=== PATIENT | female | born 1970 | race Caucasian/White ===

== ENCOUNTER 2023-05-08 09:55 | Outpatient (CLI) | payer BC, SELFPAY ==
--- NOTE | 2023-05-08 11:30 | NEURO_ITS ---
Impression: # Complains of numbness of both hands. # Bilateral Carpal Tunnel Syndrome, right more than left. # Normal Needle/EMG except right APB. # Clinical correlation recommended. Nerve Conduction Studies Anti Sensory Summary Table Stim Site NR Peak (ms) P-T Amp (?V) Site1 Site2 Delta-P (ms) Dist (cm) [place] (m/s) Left Median Anti Sensory (2-3nd Digit) Wrist 3.9 22.0 Wrist 2-3nd Digit 3.9 14.0 36 Wrist 3.9 28.2 Wrist 2-3nd Digit 3.9 14.0 36 Right Median Anti Sensory (2-3nd Digit) NO RESPONSE Wrist 4.7 11.6 Wrist 2-3nd Digit 4.7 14.0 30 Wrist NR Wrist 2-3nd Digit 4.7 14.0 30 Left Radial Anti Sensory (Base 1st Digit) Wrist 2.1 26.8 Wrist Base 1st Digit 2.1 0.0 Right Radial Anti Sensory (Base 1st Digit) Wrist 1.8 29.2 Wrist Base 1st Digit 1.8 0.0 Left Ulnar Anti Sensory (5th Digit) Wrist 2.1 35.0 Wrist 5th Digit 2.1 14.0 67 Right Ulnar Anti Sensory (5th Digit) Wrist 2.5 29.0 Wrist 5th Digit 2.5 14.0 56 Motor Summary Table Stim Site NR Onset (ms) O-P Amp (mV) Site1 Site2 Delta-0 (ms) Dist (cm) Quincy (m/s) Left Median Motor (Abd Poll Brev) Wrist 4.2 2.9 Elbow Wrist 5.0 30.0 60 Elbow 9.2 2.0 Right Median Motor (Abd Poll Brev) Wrist 6.5 2.7 Elbow Wrist 4.7 26.0 55 Elbow 11.2 2.6 Left Ulnar Motor (Abd Dig Minimi) Wrist 2.7 5.5 A Elbow Wrist 5.2 30.0 58 A Elbow 7.9 5.2 Right Ulnar Motor (Abd Dig Minimi) Wrist 2.4 7.4 A Elbow Wrist 5.3 29.0 55 A Elbow 7.7 5.7 F Wave Studies NR F-Lat (ms) L-R F-Lat (ms) Left Median (Mrkrs) (Abd Poll Brev) 27.70 2.12 Right Median (Mrkrs) (Abd Poll Brev) 29.82 2.12 Left Ulnar (Mrkrs) (Abd Dig Min) 28.38 0.75 Right Ulnar (Mrkrs) (Abd Dig Min) 27.63 0.75 EMG Side Muscle Nerve Root Ins Act Fibs Amp Dur Recrt Comment Right 1stDorInt Ulnar C8-T1 Nml Nml Nml Nml Nml Right Ext Indicis Radial (Post Int) C7-8 Nml Nml Nml Nml Nml Right Ext Digitorum Radial (Post Int) C7-8 Nml Nml Nml Nml Nml Right BrachioRad Radial C5-6 Nml Nml Nml Nml Nml Right PronatorTeres Median C6-7 Nml Nml Nml Nml Nml Right Abd Poll Brev Median C8-T1 Nml Nml Nml Nml Reduced Left 1stDorInt Ulnar C8-T1 Nml Nml Nml Nml Nml Left Ext Indicis Radial (Post Int) C7-8 Nml Nml Nml Nml Nml Left Ext Digitorum Radial (Post Int) C7-8 Nml Nml Nml Nml Nml Left BrachioRad Radial C5-6 Nml Nml Nml Nml Nml Left PronatorTeres Median C6-7 Nml Nml Nml Nml Nml Left Abd Poll Brev Median C8-T1 Nml Nml Nml Nml Nml MTDD
== END 2023-05-08 09:56 | disposition home or self-care (01) ==
LOC: ANHNEURO 09:55
PROVIDERS: PCP Physician Assistant; Visit Provider Physician Assistant
DX: G56.03 Carpal tunnel syndrome, bilateral upper limbs (principal)
CPT/HCPCS: 95886; 95911

== ENCOUNTER 2024-11-25 09:21 | Outpatient (CLI) | payer BC, SELFPAY ==
--- NOTE | 2024-11-25 | ECHO_ITS ---
Patient Info Name: Laura Desir Age: 53 years : 1970 Gender: Female Ht: 65 in Wt: 227 lbs BSA: 2.22 m2 HR: 87 bpm BP: 191 / 97 mmHg Heart Rhythm: Sinus Rhythm Technical Quality: Good Exam Date: 11/25/2024 9:51 AM Exam Location: Echo Lab Patient Status: Outpatient Admit Date: 11/25/2024 Staff Ordering Physician: CheriRegina PA-C Wood Sawyer: Beata Hogan RDCS Attending Provider: CheriRegina PA-C Exam Type: CA echo doppler color flow Study Info Indications R94.31 - Abnormal electrocardiogram ECG EKG Complete two-dimensional, color flow and Doppler transthoracic echocardiogram is performed. Summary 1. Complete two-dimensional, color flow and Doppler transthoracic echocardiogram is performed. 2. Left ventricular chamber dimension is normal. 3. Left ventricular systolic function is normal, estimated at 65-70%. 4. Right ventricular systolic function is normal. 5. No significant valvular disease. Left Ventricle Left ventricular chamber dimension is normal. Left ventricular systolic function is normal, estimated at 65-70%. There is no increased left ventricular wall thickness. The left ventricular diastolic function is normal. Right Ventricle Right ventricular chamber dimension is normal. Right ventricular systolic function is normal. Left Atria Left atrial chamber dimension is normal. Right Atria Right atrial chamber dimension is normal. Atrial Septum Intact interatrial septum visualized by color flow imaging. Aortic Valve The aortic valve is trileaflet. There is mild aortic valve sclerosis. There is no aortic valve stenosis. There is no aortic valve regurgitation. Pulmonic Valve The pulmonic valve is not well visualized. Mitral Valve There is trace mitral valve regurgitation. Tricuspid Valve There is trace tricuspid valve regurgitation. Pericardium/Pleural There is no pericardial effusion. Inferior Vena Cava Normal inferior vena cava with >50% collapse upon inspiration consistent with normal right atrial pressure, 3 mmHg. Aorta The aortic root size at the sinus of Valsalva is normal. Left Ventricular Outflow Tract Name Value Normal LVOT 2D LVOT Diameter 1.9 cm LVOT Doppler LVOT Peak Velocity 95 cm/s LVOT Peak Gradient 4 mmHg LVOT Mean Gradient 2 mmHg LVOT VTI 20 cm LVOT VTI/AV VTI Ratio 0.8 LVOT Stroke Volume 55 ml LVOT CO 4.4 l/min LVOT CI 2.0 l/min/m2 Pulmonic Valve Name Value Normal RVOT Doppler RVOT Peak Gradient 4 mmHg PV Doppler PV Peak Velocity 134 cm/s PV Peak Gradient 7 mmHg Mitral Valve Name Value Normal MV Doppler MV Decel [place] 752 cm/s2 MV PHT 33 ms MV Area (PHT) 6.7 cm2 4.0-5.0 MV Diastolic Function MV E Peak Velocity 85 cm/s MV A Peak Velocity 116 cm/s MV E/A 0.7 MV Decel Time 113 ms Tricuspid Valve Name Value Normal Estimated PAP/RSVP RA Pressure 3 mmHg <=5 Aorta Name Value Normal Ascending Aorta Ao Root Diameter (MM) 2.9 cm Ao Root Diam Index (MM) 1.3 cm/m2 Aortic Valve Name Value Normal AV Doppler AV Peak Velocity 121 cm/s AV Peak Gradient 6 mmHg AV Mean Gradient 4 mmHg AV VTI 24 cm AV Area (Cont Eq VTI) 2.3 cm2 >=3.0 AV Area (Cont Eq Quin[place]) 2.2 cm2 AV V1/V2 Ratio 0.78 AV Regurgitation 2D LVOT Area 2.8 cm2 Ventricles Name Value Normal LV Dimensions 2D/MM IVS Diastolic Thickness (2D) 1.0 cm 0.6-1.0 IVS Diastole Thickness (MM) 1.1 cm 0.6-0.9 LVID Diastole (2D) 4.1 cm 3.8-5.2 LVID Diastole (MM) 4.7 cm 3.8-5.2 LVIW Diastolic Thickness (2D) 1.0 cm 0.6-0.9 LVIW Diastolic Thickness (MM) 0.9 cm 0.6-0.9 LVID Systole (2D) 2.4 cm 2.2-3.5 LVID Systole (MM) 2.4 cm 2.2-3.5 LVOT Diameter 1.9 cm LV Mass (2D Cubed) 132.74 g 67.00-162.00 LV Mass Index (2D Cubed) 60 g/m2 43-95 Relative Wall Thickness (2D) 0.47 LV Mass (MM Cubed) 165.82 g 67.00-162.00 LV Mass Index (MM Cubed) 75 g/m2 43-95 Relative Wall Thickness (MM) 0.39 LV Fractional Shortening/Ejection Fraction 2D/MM LV Fractional Shortening (2D) 41 % 27-45 LV Fractional Shortening (MM) 50 % 27-45 LV EF (MM Teicholz) 81 % 54-74 LV EF (2D Teicholz) 73 % 54-74 LV Diastolic Volume (4C MOD) 78 ml LV EF (4C MOD) 65 % LV Diastolic Volume (2C MOD) 83 ml LV EF (2C MOD) 67 % LV Diastolic Volume (BP MOD) 81 ml 46-106 LV Diastolic Volume Index (BP MOD) 37 ml/m2 29-61 LV Systolic Volume (BP MOD) 28 ml 14-42 LV Systolic Volume Index (BP MOD) 12 ml/m2 8-24 LV EF (BP MOD) 66 % 54-74 LV Diastolic Length (4C) 8.5 cm LV Systolic Length (4C) 7.2 cm LV Stroke Volume (4C MOD) 51 ml Atria Name Value Normal LA Dimensions LA Dimension (MM) 4.2 cm 2.7-3.8 LA Volume (4C A-L) 37 ml LA Volume (BP A-L) 41 ml RA Dimensions RA Area (4C) 13.7 cm2 <=18.0 Report Signatures
--- NOTE | 2024-11-25 | EST_ITS ---
Patient Info Name: Laura Desir Age: 53 years : 1970 Gender: Female Ht: 65 in Wt: 227 lbs BSA: 2.22 m2 HR: 81 bpm BP: 174 / 77 mmHg Exam Date: 11/25/2024 11:04 AM Exam Location: Echo Lab Patient Status: Outpatient Admit Date: 11/25/2024 Staff Ordering Physician: IvanRegina PA-C Attending Provider: IvanRegina PA-C Exercise Technologist: Yasmine Copeland RDCS Nurse: Rachel Rouse APN Exam Type: CA stress yvonne w NM Study Info A regadenoson stress test was performed. Summary 1. Occasional PVCs. 2. No abnormal ST/T wave changes diagnostic of ischemia with Lexiscan. 3. Please correlate with nuclear medicine images, reported separately. 4. Stress test supervised by Rachel Rouse NP. Stress test interpreted by Agustín French MD. Protocol: Lexiscan Stress ECG Details Stage: REST Duration (min): 1 min : 58 sec HR (bpm): 84 SBP (mmHg): 174 DBP (mmHg): 77 Stage: REST Duration (min): 7 min : 18 sec HR (bpm): 87 SBP (mmHg): 174 DBP (mmHg): 77 Stage: STAGE 1 Duration (min): 1 min : 0 sec HR (bpm): 132 SBP (mmHg): 194 DBP (mmHg): 65 Stage: RECOVERY Duration (min): 1 min : 0 sec HR (bpm): 113 SBP (mmHg): 194 DBP (mmHg): 65 Stage: RECOVERY Duration (min): 2 min : 0 sec HR (bpm): 112 SBP (mmHg): 194 DBP (mmHg): 65 Stage: RECOVERY Duration (min): 3 min : 0 sec HR (bpm): 108 SBP (mmHg): 194 DBP (mmHg): 65 Stage: RECOVERY Duration (min): 4 min : 0 sec HR (bpm): 108 SBP (mmHg): 155 DBP (mmHg): 35 Stage: RECOVERY Duration (min): 4 min : 33 sec HR (bpm): 114 SBP (mmHg): 155 DBP (mmHg): 35 Rest HR: 87 bpm Peak HR: 132 bpm Rest Sys BP: 174 mmHg Peak Sys BP: 194 mmHg Max Pred HR: 169 bpm % Max Pred HR: 78 % Target HR: 144 bpm Max RPP: 25,608 bpm*mmHg Total Time: 1 min : 0 sec Rest Cano BP: 77 mmHg Peak Cano BP: 65 mmHg Total Dose: 0.4 mg Resting ECG Sinus rhythm. Stress ECG No abnormal ST/T wave changes diagnostic of ischemia with Lexiscan. Arrhythmias Occasional PVCs. Report Signatures
--- NOTE | ~2024-11-25 | NM_ITS ---
EXAMINATION: NM yvonne stress w perfusion DATE: 11/25/2024 12:24 INDICATION: Abnormal electrocardiogram. Preop. TECHNIQUE: Rest images were obtained following intravenous administration of 10.1 mCi Tc99m tetrofosm in (Myoview). The patient was infused intravenously with Lexiscan (regadenoson). Then, 32.9 mCi Tc99m tetrofosmin (Myoview) was administered intravenously, and supine and prone stress images were obtain ed. Data was reconstructed into short axis and horizontal and vertical long axis SPECT images. Gated SPECT images were also obtained. COMPARISON: None. FINDINGS: There is no definite reversible or fixed perfusion abnormality to suggest ischemia or infar ction. There is no segmental wall motion abnormality. Left ventricular ejection fraction measures > 70%. IMPRESSION: 1. No definite ischemia or infarct. 2. Normal left ventricular ejection fraction measuring >70%. Reviewed, dictated and finalized at location A. STANT DRAFTER
--- OUTSIDE RECORDS SUMMARY | 2024-11-25 09:55 | XMS_ITS | Patient Health Summary ---
Author Organization [facility] Address [address] [place] [address] Care Team Providers Care It Security Consulting Director Name Role Phone Unavailable Primary Care Provider Unavailabl e Note from [facility],non-owned Affiliates and Associated Physician Practices is amultiple site organization consisting of ambulatory clinics and hospital sitesin [place], [place], [place] and [place]. This disclosure is being madepursuant to the Care Everywhere program and may not contain all information available regarding this patient. Last updated 18.[facility] Allergies No known active allergies Medications * Be aware that medications may not be up to date on this document. Alwaysverify current medications with the patient. * METFORMIN HCL ER, MOD, PO * Fexofenadine HCl (RHEA PO) * fluticasone propionate (FLONASE) 50 MCG/ACT nasal spray(Started 07/25/2018) [place]uddy 2 sprays into each nostril once daily Social History Tobacco Use Types Packs/Day Years Used Date Smoking Tobacco: Never Sex and Gender Information Value Date Recorded Sex Assigned at Not on file Gender Identity Not on file Sexual Orientation Not on file Last Filed Vital Signs Vital Sign Reading Time Taken Comments Blood Pressure 138/80 07/25/2018 4:37 PM CDT Pulse 93 07/25/2018 4:37 PM CDT Temperature 36.6 ??C (97.8 ??F) 07/25/2018 4:37 PM CD T Respiratory Rate - - Oxygen Saturation 98% 07/25/2018 4:37 PM CDT Inhaled Oxygen Concentration - - Weight 113.4 kg (250 lb) 07/25/2018 4:37 PM CDT Height 165.1 cm (5' 5 ) 07/25/2018 4:37 PM CDT Body Mass Index 41.6 07/25/2018 4:37 PM CDT Procedures * CHOLESTECH - POINT OF CARE (AMB)(Performed 10/03/2016) Performed for Screening for lipoid disorders Results * (ABNORMAL) BIOMETRICS SCREENING--CHOLESTECH (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
--- OUTSIDE RECORDS SUMMARY | 2024-11-25 09:55 | XMS_ITS | Clinical Summary ---
Author Organization [facility] Administrative Offices Address [address] [place] [phone] Care Team Providers Care Superintendent [employer]crete Mixing [employer] Name Role Phone Tatyana Orozco MD Primary Care Provide r Allergies Active Allergy Reactions Criticality Noted Date Comments Naproxen Itching High 11/22/2023 Medications busPIRone (BUSPAR) 10 mg tablet 08/28/20 23 Active fluticasone propionate (FLONASE) 50 mcg/spray Grady, Suspension nasal inhaler 11/13/19 24 Active metroNIDAZOLE (METROGEL) 0.75 % Gel 10/09/20 23 Active sertraline (ZOLOFT) 100 mg tablet 08/28/20 23 Active traZODone (DESYREL) 50 mg tablet 08/28/20 23 Active ketoconazole (NIZORAL) 2 % CreamIndications:T inea corporis Apply to affected area daily. 60 Gram 1 11/22/19 24 Active fluconazole (DIFLUCAN) 150 mg tabletIndications: Acute cystitis without hematuria Take 1 Tablet (150 mg) by mouth daily. 1 Tablet 01/11/20 24 Active nitrofurantoin (MACROBID) 100 mg capsule Active semaglutide (Ozempic) 0.25 mg or 0.5 mg (2 mg/3 mL) Pen InjectorIndication s:Type 2 diabetes mellitus with hyperglycemia, without long-term current use of insulin (CMS/FORMERLY [facility]),Class 2 severe obesity due to excess calories with serious comorbidity and body mass index (BMI) of 39.0 to 39.9 in adult (CMS/HCC) Inject 0.5 mg by subcutaneous injection every 7 days. 9 mL 3 03/25/20 24 Active levothyroxine 75 mcg tabletIndications: Acquired hypothyroidism Take 1 tab po qam. 90 Tablet 1 04/15/20 24 Active metFORMIN (GLUCOPHAGE XR) 500 mg Extended Release 24 hour tablet TAKE TWICE DAILY 180 Tablet 1 07/22/20 24 Active cetirizine (ZyrTEC) 10 mg tablet TAKE ONCE DAILY 90 Tablet 3 10/13/20 24 Active hydroCHLOROthiazid e 25 mg tablet TAKE ONCE DAILY 90 Tablet 1 10/20/20 24 Active amLODIPine (NORVASC) 5 mg tablet TAKE ONCE DAILY 90 Tablet 3 10/31/19 25 Active amLODIPine (NORVASC) 5 mg tablet TAKE ONCE DAILY 90 Tablet 1 04/15/20 24 025 Discontin ued(Reord er) Active Problems Problem Noted Date Diagnosed Date Essential hypertension 11/21/2023 Type 2 diabetes mellitus wit h hyperglycemia, without long-term current use of insulin 11/21/2023 Environmental and seasonal allergies 11/21/2023 Acquired hypothyroidism 11/21/2023 Jose D's thyroiditis 09/10/2023 Bilateral carpal tunnel syndrome 05/10/2023 Elevated liver enzymes 09/10/2022 Anxiety 09/25/2021 Depressive disorder 09/25/2021 Encounters Date Type Department Care Team Description 11/04/2024 External Device Data [facility] ABSTRACTION Provider, Abstract 10/31/2024 Orders Only [address] [phone] Tatyana Orozco MD 10/21/2024 External Device Data [facility] ABSTRACTION Provider, Abstract 10/20/[address] [facility] - [address] [place] [phone] Tatyana Orozco MD 10/13/2024 Refill [facility] - [address] [place] [phone] Tatyana Orozco MD 08/27/2024 External Device Data [facility] ABSTRACTION Provider, Abstract from Last 3 Months Immunizations Immunization Administration Dates Next Due (ADACEL/BOOSTRIX)(10 YR UP) TDAP VACCINE, 0.5ML, IM 10/29/2008 Family History Medical History Relation Name Comments Diabetes Father Ruel End Stage Renal Disease Father Ruel Heart Attack Father Ruel Hypertension Father Ruel Ovarian Cancer Maternal Grandmother Floirina Hypertension Mother Aylin Thyroid Disease Mother Aylin Relation Name Status Comments Father Ruel Maternal Grandmother Floy Mother Aylin Alive Social History Tobacco Use Types Packs/Day Years Used Date Smoking Tobacco: Never Passive Smoke Exposure: Never Smokeless Tobacco: Never Tobacco Cessation:Counseling Given: Not Answered Alcohol Use Standard Drinks/Week Comments Not Currently 0 (1 standard drink = 0.6 oz pur e alcohol) 1-2 times a year Comments No Sex and Gender Information Value Date Recorded Sex Assigned at Female 01/10/2024 9:53 AM CDT Legal Sex Female 5:36 AM FOREST ECOLOGIST Gender Identity Female 01/10/2024 9:53 AM CDT Sexual Orientation Straight 01/10/2024 9: 53 AM CDT Last Filed Vital Signs Vital Sign Reading Time Taken Comments Blood Pressure 123/77 03/25/2024 8:36 AM CDT Pulse 75 03/25/2024 8:36 AM CDT Temperature 36.6 ??C (97.8 ??F) 03/25/2024 8:36 AM CD T Respiratory Rate 16 02/20/2024 8:51 AM CDT Oxygen Saturation 98% 03/25/2024 8:36 AM CDT Inhaled Oxygen Concentration - - Weight 107.5 kg (237 lb) 03/25/2024 8:36 AM CDT Height 165.1 cm (5' 5 ) 03/25/2024 8:36 AM CDT Body Mass Index 39.44 03/25/2024 8:36 AM CDT Plan of Treatment Upcoming Encounters Date Type Department Care Team (Late st Contact Info) Description 03/25/2025 9:00 AM CDT Office Visit [facility] Primary [facility] - [address] [place] [phone] Tatyana Orozco MD [facility] [place] [address] Health Maintenance Due Date Last Done Comments PNEUMOCOCCAL VACCINE 0-64 YEARS (1 of 2 - PCV) 979 LDL CHOLESTEROL ANNUAL 1990 HEPATITIS B VACCINES (1 of 3 - 19+ 3-dose series) 10/31 BREAST CANCER SCREENING 2012 COLORECTAL SCREENING 2017 FIT/FOBT Q 1 year 2017 Flex Sig/CT Colonography Q 5 years 2017 DTAP/TDAP/TD VACCINES (2 - Td or Tdap) 10/29/2018 ZOSTER VACCINE (1 of 2) 2022 DIABETES HBA1C Q 6 MONTHS 05/22/2024 11/22/2023 INFLUENZA VACCINE (#1) 2024 11/22/2023 Preventative Visit- Commercial 10/29/2024 11/22/2023 DIABETES ANNUAL FOOT EXAM 11/22/2024 11/22/2023 DIABETES: A1C (Auto Order) 11/22/2024 11/22/2023 DIABETES MICROALBUMIN ANNUAL SCREEN 03/25/202503/25 DIABETES ANNUAL RETINAL EXAM 05/19/2025 05/19/2024 CERVICAL CANCER SCREENING 02/19/2027 02/20/2024 Colorectal Cancer Screening 04/21/2027 FIT-DNA Q 3 years 04/21/2027 04/21/2024 Procedures Procedure Name Priority Date/Time Associated Diagnosis Comments HM DIABETES EYE EXAM Routine 05/19/2024 1:08 PM CDT COLON CANCER SCREEN, STOOL DNA Routine 04/21/2024 3:45 PM CDT Screening for colon cancer POC MICROALB/CREAT RATIO URINE QUANT Routine 03/25/2024 8:45 AM CDT Type 2 diabetes mellitus with hyperglycemia, without long-term current use of insulin (CMS/HCC) CERV/VAG CYTO AGE BASED SCREEN PAP Routine 02/20/2024 9:42 AM CDT Cervical cancer screening POC HEMOGLOBIN A1C Routine 11/22/2023 8: 07 AM FOREST ECOLOGIST Type 2 diabetes mellitus with hyperglycemia, without long-term current use of insulin (CMS/HCC) from Last 3 Months or Most Recently Relevant to Health Maintenance Results * DIABETES EYE EXAM (05/19/2024 1:08 PM CDT) us Abstract Provider HEALTH MAINTENANCE Final Resul t [facility] - [address] [facility] CLIA# [id number] [address] * COLON CANCER SCREEN, STOOL DNA (04/21/2024 3:45 PM CDT) COLOGUARD RESULT Negative Negative [facility] Comment: NEGATIVE TEST RESULT. A negative Cologuard result indicates a low likelihood that a colorectal cancer (CRC) or advanced adenoma (adenomatous polyps with more advanced pre-malignant features) ??is present. The chance that a person with a negative Cologuard test has a colorectal cancer is less than 1 in 1500 (negative predictive value >99.9%) or has an ??advanced adenoma is less than ??5.3% (negative predictive value 94.7%). These data are based on a prospective cross-sectional study of 10,000 individuals at average risk for colorectal cancer who were screened with both Cologuard and colonoscopy. (Kan Hu et al, N Engl J Med 2014;370(14):8577-4227) The normal value (reference range) for this assay is negative. COLOGUARD RE-SCREENING RECOMMENDATION: Periodic colorectal cancer screening is an important part of preventive healthcare for asymptomatic individuals at average risk for colorectal cancer. ??Following a negative Cologuard result, the [place] Cancer Society and U.S. Multi-Society Task Force screening guidelines recommend a Cologuard re-screening interval of 3 years. References: [place] Cancer Society Guideline for Colorectal Cancer Screening: https://www.cancer.org/cancer/jxpav-lhepmu-eivouu/cvovbcxpb-fgtlgbpjg-sfbttva/ac s-rec ommendations.html.; Hugo FELIX, Keri CORNELIUS, Rashmi WELLS, Colorectal Cancer Screening: Recommendations for Physicians and Patients from the U.S. Multi-Society Task Force on Colorectal Cancer Screening , Am J Gastroenterology 2017; 112:6980-5220. TEST DESCRIPTION: Composite algorithmic analysis of stool DNA-biomarkers with hemoglobin immunoassay. ?? Quantitative values of individual biomarkers are not reportable and are not associated with individual biomarker result reference ranges. Cologuard is intended for colorectal cancer screening of adults of either sex, 45 years or older, who are at average-risk for colorectal cancer (CRC). Cologuard has been approved for use by the U.S. FDA. The performance of Cologuard was established in a cross sectional study of average-risk adults aged 50-84. Cologuard performance in patients ages 45 to 49 years was estimated by sub-group analysis of near-age groups. Colonoscopies performed for a positive result may find as the most clinically significant lesion: colorectal cancer [4.0%], advanced adenoma (including sessile serrated polyps greater than or equal to 1cm diameter) [20%] or non- advanced adenoma [31%]; or no colorectal neoplasia [45%]. These estimates are derived from a prospective cross-sectional screening study of 10,000 individuals at average risk for colorectal cancer who were screened with both Cologuard and colonoscopy. (Kan Hu et al, N Engl J Med 2014;370(14):7664-4534.) Cologuard may produce a false negative or false positive result (no colorectal cancer or precancerous polyp present at colonoscopy follow up). A negative Cologuard test result does not guarantee the absence of CRC or advanced adenoma (pre-cancer). The current Cologuard screening interval is every 3 years. ([place] Cancer Society and U.S. Multi-Society Task Force). Cologuard performance data in a 10,000 patient pivotal study using colonoscopy as the reference method can be accessed at the following location: www.[employer]World.[employer]/results. Additional description of the Cologuard test process, warnings and precautions can be found at www.[employer].com. Stool STOOL SPECIMEN / Unknown 04/21/2024 3:45 PM CDT 04/22/2024 2:51 PM CDT us Tatyana Orozco MD BODY FLUIDS AND STOOL S Final Result [employer] CLIA # [id number] [address] , [address] [place] [address] * POC MICROALB/CREAT RATIO URINE QUANT (03/25/2024 8:45 AM CDT) MICROALBUMIN, URINE POC 10.0 5.0 - 300.0 mg/L [facility] - [facility] [place] CREATININE, URINE POC 100.0 15.0 - 500.0 mg/dL [place] [address] MICROALBUMIN/CR EAT RATIO, URINE POC 30.0 1.0 - 2,000.0 mg/g [place] [address] [address] [place] Urine 03/25/2024 8:45 AM CDT us Tatyana Orozco MD POINT OF CARE TESTING Final Result [place] [address] [place] CLIA# [id number] [facility] [address] * CERV/VAG CYTO AGE BASED SCREEN PAP (02/20/2024 9:42 AM CDT) Pathologist [facility] COMMENT (PAP): [facility] Comment: This order for age-based cervical cancer and STI screening follows ACOG guidelines(PB 168, 140, DOA487). See individual assays for performing site location. CLINICAL INFORMATION [facility] Comment:None given LAST MENSTRUAL PERIOD [facility] Comment:NONE GIVEN PREV PAP: [facility] Comment:NONE GIVEN PREV BX: [facility] Comment:NONE GIVEN SOURCE [facility] Comment:Endocervix ADEQUACY: [facility] Comment: Satisfactory for evaluation. Endocervical/transformation zone component present. Age and/or menstrual status not provided PAP INTERP [facility] Comment: Cytology Results: Negative for intraepithelial lesion or malignancy. COMMENT (PAP TEST) [facility] Comment: This Pap test has been evaluated with computer assisted technology. NUTRITION TECHNICIAN: [facility] Comment: MVB, CT(ASCP) CT Screening Location: [place] [address] [place] [address] EXPLANATORY NOTE Que [employer] [facility] [place] Comment: EXPLANATORY NOTE: The Pap is a screening test for cervical cancer. It is not a diagnostic test and is subject to false negative and false positive results. It is most reliable when a satisfactory sample, regularly obtained, is submitted with relevant clinical findings and history, and when the Pap result is evaluated along with historic and current clinical information. HPV E6/E7 Not Detected Not Detected [facility] Comment: Methodology: Rn Medicare-Mediated Amplification This assay detects E6/E7 viral messenger RNA (mRNA) from 14 high-risk HPV types (16,18,31,33,35,39,45,51,52,56,58,59,66,68). Cervical sources are required for HPV testing. If a vaginal source from a patient who has had a total hysterectomy with removal of cervix was submitted, please contact the testing laboratory for alternative testing options. For additional information, please refer to http://education.YongChe/faq/ECB017o7 (This link if provided for information/ educational purposes only.) Test Performed at: [facility] [address] [place], [place] ??[address] Derrick BADILLO Genital SWAB OF ENDOCERVIX / Unknown 02/20/2024 9:42 AM CDT 02/21/2024 3:56 AM CDT June Nicholson PA-C PATHOLOGY/CYTOLOGY ORDER TARYN Final Result [facility] [phone] [facility] [address] [place] [address] * (ABNORMAL) POC HEMOGLOBIN A1C (11/22/2023 8:07 AM FOREST ECOLOGIST) HGB A1C POC 6.9(A) 4.0 - 6.0 % [facility] - [facility] [place] Blood, capillary 11/22/2023 8:07 AM FOREST ECOLOGIST June Nicholson PA-C POINT OF CARE TESTING Fi nal Result [facility] - [address] CLIA# [id number] [address] [address], from Last 3 Months or Most Recently Relevant to Health Maintenance Insurance [employer] ACCESS CHOICE Care Teams Superintendent [employer] Relationship Specialty Start Date End Date Tatyana Orozco MD [address] [place] [address] PCP - General Family Practice 11/22/23
--- OUTSIDE RECORDS SUMMARY | 2024-11-25 09:55 | XMS_ITS ---
Author Organization [facility] [employer] [facility] Address [address] [place] [address] Care Team Providers Care Missile Pad Mechanic Name Role Phone Dilia Doherty Unavailable [phone] REASON FOR VISIT Telehealth Next Visit Encounters Encounter Location Date Provider Diagnosis [facility] [address] [place] [address] 08/29/2024 Dilia Doherty Plan Of Treatment Next Appt Details Provider Name:Dilia Doherty , 12/29/2024 08:15:00 AM, [address], [address], [place], [address], Progress Notes * CAROLE SAMUELOB:[birth year] (53 yo F)Acc No.[id number]:08/29/2024 Patient:?LIZZIE, KEELEY :1970???Age:53 Y???Sex:Female [facility] [place], [address] * true * Date:? Generated for Raouli carlos/Tisha/eTransmitting on:?11/25/2024 09:55 AM MARINE MECHANIC
--- OUTSIDE RECORDS SUMMARY | 2024-11-25 09:55 | XMS_ITS ---
Author Organization [facility] [employer] [facility] Address [address] [place] [address] Care Team Providers Care Respiratory Care Instructor Name Role Phone Dilia Doherty Unavailable [phone] REASON FOR VISIT Appointment on 08/29 Encounters Encounter Location Date Provider Diagnosis [facility] [employer] [facility] [address] [place] [address] 08/24/2024 Dilia Doherty Plan Of Treatment Next Appt Details Provider Name:Dilia Doherty , 12/29/2024 08:15:00 AM, [address], [place], [address], Progress Notes * CAROLE SAMUELOB:[birth year] (53 yo F)Acc No.[id number]:08/24/2024 Patient:?LIZZIE, KEELEY :1970???Age:53 Y???Sex:Female Address:[address] [place] [address], [place], [address] * true * Date:? Generated for Printi carlos/Tisha/eTransmitting on:?11/25/2024 09:55 AM MANAGER OF PMO
--- OUTSIDE RECORDS SUMMARY | 2024-11-25 09:55 | XMS_ITS | Referral Summary ---
Author Organization [facility] Address [address] [place] [address] Care Team Providers Care Senior Core Java Developer Name Role Phone Unavailable Primary Care Provider Unavailabl e Source Comments [facility],non-owned Affiliates and Associated Physician Practices is amultiple site organization consisting of ambulatory clinics and hospital sitesin [place], [place], [place] and [place]. This disclosure is being madepursuant to the Care Everywhere program and may not contain all information available regarding this patient. Last updated 18.[facility] Allergies No known active allergies Medications * Be aware that medications may not be up to date on this document. Alwaysverify current medications with the patient. Medication Sig Dispensed Refills Start Date End Date Status METFORMIN HCL ER, MOD, PO Active Fexofenadine HCl (RHEA PO) Active fluticasone propionate (FLONASE) 50 MCG/ACT nasal spray [place] 2 sprays into each nostril once daily 1 bottles 07/25/2018 Active Social History Tobacco Use Types Packs/Day Years [...] Mass Index 41.6 07/25/2018 4:37 PM CDT Plan of Treatment Not on file
--- OUTSIDE RECORDS SUMMARY | 2024-11-25 09:56 | XMS_ITS | Data Portability ---
Author Organization [facility] SHAMIRAysha Address [address] [place] [address] Care Team Providers Care Technical Clerk Name Role Phone MARIBETH TUCKER Primary Care Provider [phone] JOANA CA Primary Care Provider Unavailab le Assessment No assessment recorded. Plan of Treatment Reminders Order Date Submit Date Provider Last Modified By Organization Details Last Modified Time Details Appointments ANY 15 2024 07:45A M KARISHMA Dill Not available Not available Not available Lab CMP, serum or plasma 2023 024 EVELYN [facility], [address], [place], [address], 11/14/2023 06:16:32 TSH, ultra-sen sitive, serum 2023 024 EVELYN [facility], [address], [place], [address], 12/26/2023 08:30:01 lipid panel, serum 2023 024 [email or web address], [address], [place], [address], 08/15/2024 13:57:20 CMP, serum or plasma 2023 024 [email or web address], [address], [place], [address], 08/15/2024 13:57:20 TSH + free T4, serum 2023 024 EVELYN [facility], [address], [place], [address], 10/29/2024 07:07:18 HbA1c (hemoglob in A1c), blood 2023 024 EVELYN [facility], [address], [place], [address], 10/29/2024 07:07:20 CMP, serum or plasma 2023 024 EVELYN [facility], [address], [place], [address], 10/29/2024 07:07:19 CBC w/ auto diff 2023 024 [email or web address] [facility], [address], [place], [address], 11/11/2024 10:02:10 Referral None recorded. Procedures None recorded. Surgeries None recorded. Imaging electroca rdiogram 2024 025 [email or web address] In-Office Order, Internal Use Only DO Not Attach Compendium DO Not Attach Compendium, Do Not Delete/merge, [id number] 11/03/2024 15:04:23 Medication Orders Flonase Allergy Relief 50 mcg/actua tion nasal spray,jacquie pension 2023 024 [facility] #[id number], [address], [place], [address], 11/13/2023 11:44:15 fluticaso ne propionat e 50 mcg/actua tion nasal spray,jacquie pension 2023 024 [facility], [address] [place] [address], [address], 12/25/2023 10:42:38 cetirizin e 10 mg tablet 2023 024 [email or web address], [address] [place] [address], [address], 07/25/2024 11:30:19 metformin ER 500 mg tablet,ex tended release 24 hr 2023 [facility]N [facility], [address] [place] [address], [address], 12/25/2023 10:42:39 Trulicity 1.5 mg/0.5 mL subcutane ous pen injector 2023 [facility], [address] [place] [address], [address], 07/25/2024 11:29:10 metronida zole 0.75 % topical gel 2023 [facility], [address] [place] [address], [address], 07/25/2024 11:38:17 amlodipin e 5 mg tablet 2023 [email or web address] [facility], [address] [place] [address], [address], 07/25/2024 11:27:41 hydrochlo rothiazid e 25 mg tablet 2023 [facility], [address] [place] [address], [address], 12/25/2023 10:42:39 Synthroid 75 mcg tablet 2023 [facility], [address] [place] [address], [address], 08/21/2024 09:01:24 Ozempic 1 mg/dose (4 mg/3 mL) subcutane ous pen injector 2023 [facility] #[id number], [address] [facility], [place], [address], 07/25/2024 12:07:25 triamcino lone acetonide 0.1 % topical cream 2023 024 [facility] #[id number], [address], [place], [address], 10/09/2024 09:15:56 Patient TargetsNo targets recorded. Patient Instructions Encounter Date Encounter Id Patient Instructions Last Modified By Organization Details Last Modified Time 07/25/2024 [id number] A healthy lifestyle: care instructions Not available 07/25/2024 12:07:22 10/09/2024 [id number] A healthy lifestyle: care instructions Not available 10/09/2024 09:15:54 Reason for Referral None Reported. Results Created Date Observation Date Name Description Value Unit Range Abnormal Flag Note LastModifiedBy Organization Detail LastModifiedTime 10/25/2010/26/2023 TSH+F REE T4 TSH 3.080 uIU/m L 0.450- 4.500 Not Available [facility] ([facility]) [address] [facility], [place], [address], 10/26/2023 06:16:44 10/25/20 23 10/26/2023 TSH+F REE T4 T4,free(dire ct) 1.45 NG/dL 0.82-1 .77 Not Available [facility] ([facility]) [address] [place], [address], 10/26/2023 06:16:44 11/13/19 24 11/13/2023 COMP. METAB OLIC PANEL (14) glucose 93 mg/dL 70-99 Not Available [facility] [address] [place], [address], 11/14/2023 06:16:32 11/13/19 24 11/13/2023 COMP. METAB OLIC PANEL (14) BUN 12 mg/dL 6-24 Not Available [facility] [address] [place], [address], 11/14/2023 06:16:32 11/13/19 24 11/13/2023 COMP. METAB OLIC PANEL (14) creatinine 0.71 mg/dL 0.76-1 .27 below low normal Not Available [address], [address], 11/14/2023 06:16:32 11/13/19 24 11/13/2023 COMP. METAB OLIC PANEL (14) eGFR 104 >=60 Units for eGFR value s are mL/mi n/1.7 3 The eGFR Calcu latio n has not been valid ated for patie nts under the age of 18. If test resul ts are displ ayed for a patie nt under the age of 18, disre wallace that value . Not Available [address], [address], 11/14/2023 06:16:32 11/13/19 24 11/13/2023 COMP. METAB OLIC PANEL (14) BUN/creatini ne ratio 17 9-23 Not Available [address], [address], 11/14/2023 06:16:32 11/13/19 24 11/13/2023 COMP. METAB OLIC PANEL (14) sodium 139 mmol/ L 134-14 4 Not Available [address], [address], 11/14/2023 06:16:32 11/13/19 24 11/13/2023 COMP. METAB OLIC PANEL (14) potassium 4.0 mmol/ L 3.5-5. 2 Not Available [address], [address], 11/14/2023 06:16:32 11/13/19 24 11/13/2023 COMP. METAB OLIC PANEL (14) chloride 99 mmol/ L 96-106 Not Available [address] [place], [address], 11/14/2023 06:16:32 11/13/19 24 11/13/2023 COMP. METAB OLIC PANEL (14) carbon dioxide, total 24 mmol/ L Not Available [address], [address], 11/14/2023 06:16:32 11/13/19 24 11/13/2023 COMP. METAB OLIC PANEL (14) calcium 9.9 mg/dL 8.7-10 .2 Not Available [address], [address], 11/14/2023 06:16:32 11/13/19 24 11/13/2023 COMP. METAB OLIC PANEL (14) protein, total 7.5 g/dL 6.0-8. 5 Not Available [address], [address], 11/14/2023 06:16:32 11/13/19 24 11/13/2023 COMP. METAB OLIC PANEL (14) albumin 4.6 g/dL 3.9-4. 9 Not Available [address], [address], 11/14/2023 06:16:32 11/13/19 24 11/13/2023 COMP. METAB OLIC PANEL (14) globulin, total 2.9 g/dL 1.5-4. 5 Not Available [address], [address], 11/14/2023 06:16:32 11/13/19 24 11/13/2023 COMP. METAB OLIC PANEL (14) A/G ratio 1.5 1.2-2. 2 Not Available [address], [address], 11/14/2023 06:16:32 11/13/19 24 11/13/2023 COMP. METAB OLIC PANEL (14) bilirubin, total 1.0 mg/dL 0.0-1. 2 Not Available [address], [address], 11/14/2023 06:16:32 11/13/19 24 11/13/2023 COMP. METAB OLIC PANEL (14) alkaline phosphatase 95 IU/L 44-121 Not Available [address], [address], 11/14/2023 06:16:32 11/13/19 24 11/13/2023 COMP. METAB OLIC PANEL (14) AST (SGOT) 27 IU/L 0-40 Not Available [address], [address], 11/14/2023 06:16:32 11/13/19 24 11/13/2023 COMP. METAB OLIC PANEL (14) ALT (SGPT) 27 IU/L 0-32 Not Available [address], [address], 11/14/2023 06:16:32 11/13/19 24 11/13/2023 DIABE AALIYAH PATIE NT EDUCA TION pdf . Not Available [address], [address], 11/14/2023 06:16:33 12/25/19 24 12/26/2023 TSH RFX ON ABNOR MAL TO FREE T4 TSH 2.720 uIU/m L 0.450- 4.500 Not Available [facility] ([facility]) [address] [facility], [place], [address], 12/26/2023 08:30:01 08/11/20 24 08/12/2024 TSH+F REE T4 TSH 4.720 uIU/m L 0.450- 4.500 above high normal Not Available [facility] ([facility]) [address] [place], [address], 08/12/2024 16:36:52 08/11/2008/12/2024 TSH+F REE T4 T4,free(dire ct) 1.37 NG/dL 0.82-1 .77 Not Available [facility] ([facility]) [address] [place], [address], 08/12/2024 16:36:52 08/11/2008/12/2024 THYRO ID PEROX IDASE (TPO) AB thyroid peroxidase (tpo) Ab 562 IU/mL 0-34 above high normal Not Available [facility] ([facility]) [address] [place], [address], 08/12/2024 16:36:54 08/11/2008/12/2024 THYRO GLOBU LISETH ANTIB CRUZ thyroglobuli n antibody 8.1 IU/mL 0.0-0. 9 above high normal Thyro globu liseth Antib cruz measu red by Atiya Vasquezt er Metho dolog y It shoul d be noted that the prese nce of thyro globu liseth antib odies may not be patho genic nor diagn ostic , espec ially at very low level s. The assay manutreva actur er has found that four perce nt of indiv idual s witho ut evide nce of thyro id disea se or autoi mmuni ty will have posit radha TgAb level s up to 4 IU/mL . Not Available [facility] ([facility]) [address] [place], [address], 08/12/2024 16:36:55 08/11/2008/12/2024 TRIIO DOTHY KILEY E (T3), FREE triiodothyro nine (T3), free 3.1 pg/mL 2.0-4. 4 Not Available [facility] ([facility]) [address] [place], [address], 08/12/2024 16:36:56 08/11/2008/12/2024 SPECI MEN STATU S REPOR T specimen status report TNP Test not perfo rmed. Test cance lled due to patie nt decli kelsy to have phleb otomy perfo rmed. TEST: [id number] CBC With Diffe renti al/Pl atele t Not Available [facility] ([facility]) [address] [facility], [place], [address], 08/13/2024 06:19:53 08/11/2008/13/2024 LIPID PANEL cholesterol, total 141 mg/dL 100-19 9 Not Available [facility] ([facility]) [address] [facility], [place], [address], 08/13/2024 06:19:54 08/11/2008/13/2024 LIPID PANEL triglyceride s 72 mg/dL 0-149 Not Available [facility] ([facility]) [address] [facility], [place], [address], 08/13/2024 06:19:54 08/11/2008/13/2024 LIPID PANEL HDL cholesterol 45 mg/dL >39 Not Available [facility] [address] [facility], [place], [address], 08/13/2024 06:19:54 08/11/2008/13/2024 LIPID PANEL VLDL cholesterol taya 14 mg/dL 5-40 Not Available [facility] ([facility]) [address] [facility], [place], [address], 08/13/2024 06:19:54 08/11/2008/13/2024 LIPID PANEL LDL chol calc ([facility]) 82 mg/dL 0-99 Not Available [facility]) [address] [facility], [place], [address], 08/13/2024 06:19:54 08/11/2008/12/2024 COMP. METAB OLIC PANEL (14) sodium 140 mmol/ L 134-14 4 Not Available [facility] ([facility]) [address] [place], [address], 08/13/2024 06:19:55 08/11/2008/12/2024 COMP. METAB OLIC PANEL (14) potassium 3.8 mmol/ L 3.5-5. 2 Not Available [facility] ([facility]) [address] [place], [address], 08/13/2024 06:19:55 08/11/2008/12/2024 COMP. METAB OLIC PANEL (14) chloride 101 mmol/ L 96-106 Not Available [facility] ([facility]) [address] [place], [address], 08/13/2024 06:19:55 08/11/2008/13/2024 COMP. METAB OLIC PANEL (14) glucose 143 mg/dL 70-99 above high normal Not Available [facility] ([facility]) [address] [place], [address], 08/13/2024 06:19:55 08/11/2008/13/2024 COMP. METAB OLIC PANEL (14) BUN 11 mg/dL 6-24 Not Available [facility] ([facility]) [address] [place], [address], 08/13/2024 06:19:55 08/11/2008/13/2024 COMP. METAB OLIC PANEL (14) creatinine 0.77 mg/dL 0.57-1 .00 Not Available [facility] ([facility]) [address] [place], [address], 08/13/2024 06:19:55 08/11/20 24 08/13/2024 COMP. METAB OLIC PANEL (14) eGFR 93 mL/mi n/1.7 3 >59 Not Available [facility] ([facility]) [address], [place], [address], 08/13/2024 06:19:55 08/11/2008/13/2024 COMP. METAB OLIC PANEL (14) BUN/creatini ne ratio 14 9-23 Not Available [facility] ([facility]) [address] [place], [address], 08/13/2024 06:19:55 08/11/2008/13/2024 COMP. METAB OLIC PANEL (14) carbon dioxide, total 23 mmol/ L 20-29 Not Available [facility] ([facility]) [address] [place], [address], 08/13/2024 06:19:55 08/11/20 24 08/13/2024 COMP. METAB OLIC PANEL (14) calcium 9.4 mg/dL 8.7-10 .2 Not Available [facility] ([facility]) [address], [place], [address], 08/13/2024 06:19:55 08/11/2008/13/2024 COMP. METAB OLIC PANEL (14) protein, total 6.7 g/dL 6.0-8. 5 Not Available [facility] ([facility]) [address] [place], [address], 08/13/2024 06:19:55 08/11/2008/13/2024 COMP. METAB OLIC PANEL (14) albumin 4.1 g/dL 3.8-4. 9 Not Available [facility] ([facility]) [address] [place], [address], 08/13/2024 06:19:55 08/11/2008/13/2024 COMP. METAB OLIC PANEL (14) globulin, total 2.6 g/dL 1.5-4. 5 Not Available [facility] ([facility]) [address] [facility], [place], [address], 08/13/2024 06:19:55 08/11/2008/13/2024 COMP. METAB OLIC PANEL (14) bilirubin, total 0.8 mg/dL 0.0-1. 2 Not Available [facility] ([facility]) [address] [place], [address], 08/13/2024 06:19:55 08/11/2008/13/2024 COMP. METAB OLIC PANEL (14) alkaline phosphatase 84 IU/L 44-121 Not Available [facility]) [address] [place], [address], 08/13/2024 06:19:55 08/11/2008/13/2024 COMP. METAB OLIC PANEL (14) AST (SGOT) 27 IU/L 0-40 Not Available [facility] ([facility]) [address] [place], [address], 08/13/2024 06:19:55 08/11/2008/13/2024 COMP. METAB OLIC PANEL (14) ALT (SGPT) 22 IU/L 0-32 Not Available [facility] ([facility]) [address] [place], [address], 08/13/2024 06:19:55 08/11/2008/12/2024 CBC WITH DIFFE RENTI AL/PL ATELE T WBC - x10e3 /uL Test not perfo rmed. Test cance lled due to patie nt decli kelsy to have phleb otomy perfo rmed. Not Available [facility] ([facility]) [address] [place], [address], 08/13/2024 06:19:55 08/11/20 24 08/12/2024 CBC WITH DIFFE RENTI AL/PL ATELE T RBC - Test not perfo rmed Not Available [facility] ([facility]) [address] [place], [address], 08/13/2024 06:19:55 08/11/2008/12/2024 CBC WITH DIFFE RENTI AL/PL ATELE T hemoglobin - Test not perfo rmed Not Available [facility] ([facility]) [address] [facility], [place], [address], 08/13/2024 06:19:55 08/11/2008/12/2024 CBC WITH DIFFE RENTI AL/PL ATELE T hematocrit - Test not perfo rmed Not Available [facility] ([facility]) [address] [facility], [place], [address], 08/13/2024 06:19:55 08/11/2008/12/2024 CBC WITH DIFFE RENTI AL/PL ATELE T platelets - Test not perfo rmed Not Available [facility] ([facility]) [address] [facility], [place], [address], 08/13/2024 06:19:55 08/11/2008/12/2024 CBC WITH DIFFE RENTI AL/PL ATELE T neutrophils - Test not perfo rmed Not Available [facility] ([facility]) [address] [facility], [place], [address], 08/13/2024 06:19:55 08/11/2008/12/2024 CBC WITH DIFFE RENTI AL/PL ATELE T lymphs - Test not perfo rmed Not Available [facility] ([facility]) [address] [facility], [place], [address], 08/13/2024 06:19:55 08/11/2008/12/2024 CBC WITH DIFFE RENTI AL/PL ATELE T monocytes - Test not perfo rmed Not Available [facility] ([facility]) [address] [facility], [place], [address], 08/13/2024 06:19:55 08/11/2008/12/2024 CBC WITH DIFFE RENTI AL/PL ATELE T eos - Test not perfo rmed Not Available [facility] ([facility]) [address] [facility], [place], [address], 08/13/2024 06:19:55 08/11/2008/12/2024 CBC WITH DIFFE RENTI AL/PL ATELE T lymphs (absolute) - Test not perfo rmed Not Available [facility] ([facility]) [address] [facility], [place], [address], 08/13/2024 06:19:55 08/11/2008/12/2024 CBC WITH DIFFE RENTI AL/PL ATELE T eos (absolute) - Test not perfo rmed Not Available [facility] ([facility]) [address] [facility], [place], [address], 08/13/2024 06:19:55 08/11/2008/12/2024 CBC WITH DIFFE RENTI AL/PL ATELE T baso (absolute) - Test not perfo rmed Not Available [facility] ([facility]) [address] [place], [address], 08/13/2024 06:19:55 10/28/20 24 10/29/2024 TSH+F REE T4 TSH 4.300 uIU/m L 0.450- 4.500 Not Available [facility] ([facility]) [address] [place], [address], 10/29/2024 07:07:18 10/28/20 24 10/29/2024 TSH+F REE T4 T4,free(dire ct) 1.64 NG/dL 0.82-1 .77 Not Available [facility] ([facility]) [address] [place], [address], 10/29/2024 07:07:18 10/28/20 24 10/29/2024 COMP. METAB OLIC PANEL (14) glucose 113 mg/dL 70-99 above high normal Not Available [facility] ([facility]) [address] [place], [address], 10/29/2024 07:07:19 10/28/20 24 10/29/2024 COMP. METAB OLIC PANEL (14) BUN 12 mg/dL 6-24 Not Available [facility] ([facility]) [address] [place], [address], 10/29/2024 07:07:19 10/28/20 24 10/29/2024 COMP. METAB OLIC PANEL (14) creatinine 0.78 mg/dL 0.57-1 .00 Not Available [facility] ([facility]) [address] [place], [address], 10/29/2024 07:07:19 10/28/20 24 10/29/2024 COMP. METAB OLIC PANEL (14) eGFR 92 mL/mi n/1.7 3 >59 Not Available [facility] ([facility]) [address] [place], [address], 10/29/2024 07:07:19 10/28/20 24 10/29/2024 COMP. METAB OLIC PANEL (14) BUN/creatini ne ratio 15 9-23 Not Available [facility] ([facility]) [address] [place], [address], 10/29/2024 07:07:19 10/28/20 24 10/29/2024 COMP. METAB OLIC PANEL (14) sodium 142 mmol/ L 134-14 4 Not Available [facility] ([facility]) [address] [place], [address], 10/29/2024 07:07:19 10/28/20 24 10/29/2024 COMP. METAB OLIC PANEL (14) potassium 4.0 mmol/ L 3.5-5. 2 Not Available [facility] ([facility]) [address] [facility] [place], [address], 10/29/2024 07:07:19 10/28/20 24 10/29/2024 COMP. METAB OLIC PANEL (14) chloride 101 mmol/ L 96-106 Not Available [facility] ([facility]) [address] [place], [address], 10/29/2024 07:07:19 10/28/20 24 10/29/2024 COMP. METAB OLIC PANEL (14) carbon dioxide, total 26 mmol/ L 20-29 Not Available [facility] ([facility]) [address] [place], [address], 10/29/2024 07:07:19 10/28/20 24 10/29/2024 COMP. METAB OLIC PANEL (14) calcium 9.7 mg/dL 8.7-10 .2 Not Available [facility] ([facility]) [address] [place], [address], 10/29/2024 07:07:19 10/28/20 24 10/29/2024 COMP. METAB OLIC PANEL (14) protein, total 7.2 g/dL 6.0-8. 5 Not Available [facility] ([facility]) [address] [place], [address], 10/29/2024 07:07:19 10/28/20 24 10/29/2024 COMP. METAB OLIC PANEL (14) albumin 4.4 g/dL 3.8-4. 9 Not Available [facility] ([facility]) [address] [place], [address], 10/29/2024 07:07:19 10/28/20 24 10/29/2024 COMP. METAB OLIC PANEL (14) globulin, total 2.8 g/dL 1.5-4. 5 Not Available [facility] ([facility]) [address] [place], [address], 10/29/2024 07:07:19 10/28/20 24 10/29/2024 COMP. METAB OLIC PANEL (14) bilirubin, total 1.0 mg/dL 0.0-1. 2 Not Available [facility] ([facility]) [address] [facility], [place], [address], 10/29/2024 07:07:19 10/28/20 24 10/29/2024 COMP. METAB OLIC PANEL (14) alkaline phosphatase 88 IU/L 44-121 Not Available [facility] ([facility]) [address] [place], [address], 10/29/2024 07:07:19 10/28/20 24 10/29/2024 COMP. METAB OLIC PANEL (14) AST (SGOT) 28 IU/L 0-40 Not Available [facility] ([facility]) [address] [facility], [place], [address], 10/29/2024 07:07:19 10/28/20 24 10/29/2024 COMP. METAB OLIC PANEL (14) ALT (SGPT) 25 IU/L 0-32 Not Available [facility] ([facility]) [address] [facility], [place], [address], 10/29/2024 07:07:19 10/28/20 24 10/29/2024 HEMOG LOBIN A1C hemoglobin A1C 5.6 % 4.8-5. 6 Predi abete s: 5.7 - 6.4 Diabe aaliyah: >6.4 Glyce eliceo contr ol for adult s with diabe aaliyah: <7.0 Not Available [facility] ([facility]) [address] [place], [address], 10/29/2024 07:07:20 07/30/20 24 04/24/2023 MAMMO , diagn ostic , digit al, unila teral No observ ation record ed. [email or web address] [facility] [address] [facility] [address], [place], [address], 08/07/2024 16:08:54 09/15/20 24 09/15/2024 US, thyro id No observ ation record ed. EVELYN [facility] [address] [address], [place], [address], 09/24/2024 11:35:23 10/31/19 25 10/31/2024 elect natalie sandhu am No observ ation record ed. EVELYN In-Office Order Internal Use Only DO Not Attach Compendium DO Not Attach Compendium, Do Not Delete/merge, [id number] 11/09/2024 18:03:40 Result Notes None recorded. Problems Name Problem SNOMED Code Status Onset Date Resolution Date Notes Provider Name and Address Organization Details Recorded Time Anxiety 69990007 Active 2020 Not Available [facility] 3 01:57:42 Depressive disorder 98870528 Active 2020 Not Available [facility] 3 01:57:42 Type 2 diabetes mellitus 42725339 Active 2021 Not Available [facility] 3 01:57:42 Liver enzymes level above reference range 631517361 Active 2021 Not Available [facility] 3 01:57:42 Bilateral carpal tunnel syndrome 0692667223198 9101 Active 2022 Not Available [facility] 3 01:57:41 Jose D thyroiditi s 73065240 Active 2022 KARISHMA LIU Attn: Accounting ,[address] 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, [place], [address] , [place] [facility] 4 11:38:33 Long-term drug therapy Active 2023 KARISHMA Dill Attn: Accounting ,[address] [place], [address] , [place] [facility] 4 11:38:42 Body mass index 30+ - obesity 631500195 Active 2023 KARISHMA Dill Attn: Accounting ,[address] [place], [address] , [place] [facility] 4 11:38:56 Obesity 383116122 Active 2023 KARISHMA Dill Attn: Accounting ,[address] [place], [address] , [place] [facility] 4 11:38:57 Benign essential hypertensi on 3830445 Active 2023 KARISHMA Dill Attn: Accounting ,[address] [place], [address] , [place] [facility] 19:11:30 Carpal tunnel syndrome 62554193 Active 2023 KARISHMA Dill Attn: Accounting ,[address] [place], [address] , [place] [facility] 20:16:10 Problem Notes None recorded. Procedures Surgical History Date Name Laterality Status Provider Name and Address Organization Details Recorded Time 04/05/20 Date of Last Pap Smear completed ELVIA Cap[facility] 09/26/2021 08:47:34 Tubal Ligation completed Shanelle Johnson MA [place] [facility] 09/26/2021 08:50:31 Caesarean Section completed Shanelle Johnson [place] [facility] 09/26/2021 08:50:38 excision of ganglion cyst completed Shanelle Johnson MA [place] [facility] 09/26/2021 08:50:52 Eye Surgery completed ELVIA Capone [facility] 09/26/2021 08:51:17 partial excision of bilateral fallopian tubes completed Shanelle Johnson MA [place] [facility] 09/26/2021 08:51:30 Cholecystectomy completed Shanelle Johnson MA [place] [facility] 09/26/2021 08:51:38 examination of toe completed ELVIA Villanueva [facility] 09/26/2021 08:52:02 Imaging Results Imaging Date Name Status LastModified by Organization Details LastModified Time 04/24/2023 MAMMO, diagnostic, digital, unilateral completed [email or web address] [facility] [address], [place], [address], 08/07/2024 16:08:54 09/15/2024 US, thyroid completed [facility]ELYN Rayus [facility] [address], [place], [address], 09/24/2024 11:35:23 10/31/2024 electrocardiogram completed EVELYN In-Offi ce Order Internal Use Only DO Not Attach Compendium DO Not Attach Compendium, Do Not Delete/merge, [id number] 11/09/2024 18:03:40 Procedure Notes None recorded. Medical Equipment None Reported. Allergies Allergen ID Allergen Name Allergen Category Reaction Reaction Severity Criticality Documentation Date Start Date Code Code System Note Provider Name and Address Organization Details Recorded Time [id number] naproxen medicatio n itching severe Not available 09/26/2021 [id number] RxNorm Not Available Not Available Not Available Medications Name Sig Start Date Stop Date Status Note LastModified by Organization Details LastModified Time Prescriptio n - Prior Authorizati on Request active Not Available Not Available N ot Available amoxicillin 500 mg capsule TAKE 1 CAPSULE BY MOUTH 3 TIMES A DAY UNTIL GONE 08/20 completed Not Available Not Available Not Available venlafaxine ER 37.5 mg capsule,ext ended release 24 hr TAKE 1 CAPSULE BY MOUTH EVERY DAY IN THE MORNING FOR 14 DAYS 09/08 completed Not Available Not Available Not Available venlafaxine ER 75 mg capsule,ext ended release 24 hr TAKE 1 CAPSULE BY MOUTH EVERY DAY IN THE MORNING 09/08 completed Not Available Not Available Not Available trazodone 50 mg tablet Take 1 tablet as needed by oral route as needed for 90 days. active Not Available Not Available No t Available cetirizine 10 mg tablet Take 1 tablet every day by oral route. active Not Available Not Available No t Available ibuprofen 800 mg tablet TAKE 1 TABLET BY MOUTH THREE TIMES A DAY 07/25 completed Not Available Not Available Not Available fluconazole 150 mg tablet TAKE 1 TABLET BY MOUTH EVERY THREE DAYS 10/09 completed Not Available Not Available Not Available meloxicam 15 mg tablet 09/08 completed Not Available Not Available Not Available phenazopyri dine 200 mg tablet 07/25 completed Not Available Not Available Not Available sertraline 100 mg tablet Take 1 tablet every day by oral route for 90 days. active Not Available Not Available No t Available acetaminoph en 300 mg-codeine 30 mg tablet TAKE 1 TABLET BY MOUTH EVERY 4 TO 6 HOURS NEEDED FOR PAIN 08/20 completed Not Available Not Available Not Available amlodipine 5 mg tablet Take 1 tablet every day by oral route in the morning for 90 days. active Not Available Not Available No t Available acetaminoph en 500 mg tablet TAKE 2 TABLETS EVERY 6 HOURS BY MOUTH DIRECTED FOR 7 DAYS 05/04 completed Not Available Not Available Not Available triamcinolo ne acetonide 0.1 % topical cream APPLY A THIN LAYER TO THE AFFECTED AREA(S) of arm BY TOPICAL ROUTE 2 TIMES PER DAY active Not Available Not Available No t Available levothyroxi ne 88 mcg tablet TAKE 1 TABLET BY MOUTH EVERY DAY active Not Available Not Available No t Available alprazolam 0.5 mg tablet 09/26 completed Not Available Not Available Not Available benzonatate 100 mg capsule Take 1 capsule 3 times a day by oral route as directed for 10 days. 05/04 completed Not Available Not Available Not Available cephalexin 500 mg capsule TAKE 1 CAPSULE BY MOUTH TWICE A DAY 07/25 completed Not Available Not Available Not Available buspirone 10 mg tablet Take 1 tablet 3 times a day by oral route for 90 days. active Not Available Not Available No t Available lisinopril 10 mg tablet Take 1 tablet every day by oral route in the morning for 30 days. 09/08 completed Not Available Not Available Not Available Synthroid 75 mcg tablet Take 1 tablet every day by oral route. 08/21 completed Not Available Not Available Not Available hydrochloro thiazide 25 mg tablet Take 1 tablet every day by oral route in the morning for 90 days. active Not Available Not Available No t Available methylpredn isolone 4 mg tablets in a dose pack TAKE 6 TABLETS ON DAY 1 DIRECTED ON PACKAGE AND DECREASE BY 1 TAB EACH DAY FOR A TOTAL OF 6 DAYS 08/20 completed Not Available Not Available Not Available albuterol sulfate HFA 90 mcg/actuati on aerosol inhaler Inhale 2 puffs every 4 hours by inhalatio n route as needed for 14 days. 05/04 completed Not Available Not Available Not Available ketoconazol e 2 % topical cream APPLY TO AFFECTED AREA EVERY DAY 07/25 completed Not Available Not Available Not Available fluticasone propionate 50 mcg/actuati on nasal spray,suspe nsion ADMINISTE R 1 SPRAY IN EACH NOSTRIL TWICE A DAY active Not Available Not Available No t Available metformin ER 500 mg tablet,exte nded release 24 hr Take 2 tablets twice a day by oral route with meals for 90 days. active Not Available Not Available No t Available sertraline 50 mg tablet 09/26 completed Not Available Not Available Not Available metronidazo le 0.75 % topical gel APPLY A THIN LAYER TO THE AFFECTED AREA(S) BY TOPICAL ROUTE 2 TIMES PER DAY IN THE MORNING AND EVENING 07/25 completed Not Available Not Available Not Available loratadine 10 mg tablet TAKE 1 TABLET BY MOUTH EVERY DAY FOR 10 DAYS DIRECTED 05/04 completed Not Available Not Available Not Available amoxicillin 875 mg-potassiu m clavulanate 125 mg tablet TAKE 1 TABLET BY MOUTH EVERY 12 HOURS X 10 DAYS 10/09 completed Not Available Not Available Not Available bupropion HCl XL 150 mg 24 hr tablet, extended release 09/26 completed Not Available Not Available Not Available nitrofurant oin monohydrate /macrocryst als 100 mg capsule 07/25 completed Not Available Not Available Not Available Victoza 2-Morales 0.6 mg/0.1 mL (18 mg/3 mL) subcutaneou s pen injector INJECT 1.2 MG UNDER THE SKIN EVERY DAY 08/20 completed Not Available Not Available Not Available Trulicity 1.5 mg/0.5 mL subcutaneou s pen injector Inject 1.5 mg every week by subcutane ous route as directed for 84 days. 07/25 completed Not Available Not Available Not Available TRUEplus Pen Needle 31 gauge x 3/16 USE DIRECTED 09/08 completed Not Available Not Available Not Available TRUEplus Pen Needle 32 gauge x 5/32 USE TO inject victoze daily 11/13 completed Not Available Not Available Not Available Ozempic 0.25 mg or 0.5 mg (2 mg/1.5 mL) subcutaneou s pen injector 03/19 completed Not Available Not Available Not Available Rybelsus 7 mg tablet Take 1 tablet every day by oral route as directed for 30 days. 03/23 completed Not Available Not Available Not Available Rybelsus 3 mg tablet 03/23 completed Not Available Not Available Not Available Ozempic 1 mg/dose (4 mg/3 mL) subcutaneou s pen injector INJECT 1 MG SUBCUTANE OUSLY EVERY WEEK active Not Available Not Available No t Available Flowflex COVID-19 Antigen Home Test kit TEST DIRECTED TODAY 03/19 completed Not Available Not Available Not Available Ozempic 0.25 mg or 0.5 mg (2 mg/3 mL) subcutaneou s pen injector INJECT 0.25 MG ONCE WEEKLY FOR 1 WEEK THEN INCREASE TO 0.5 MG WEEKLY 10/09 completed Not Available Not Available Not Available Vitals Date Recorded Body height Provider Name an d Address Organization Details Last Updated DateTime 11/13/2023 165.1 cm ELVIA Godinez [facility] 11/13/2023 10:56:40 Date Recorded Body mass index (BMI) Body weight Provider Name and Address Organization Details Last Updated DateTime 11/13/2023 40.4 kg/m2 387864.95 g Andreina Steward MA [facility] 0 11/13/2023 11:03:33 Date Recorded Oxygen saturation Oxygen saturation in Arterial blood by Pulse oximetry Provider Name and Address Organization Details Last Updated DateTime 11/13/2023 99 % 99 % ELVIA Godinez [facility] 11/13/2023 11:07:47 Date Recorded Heart rate Provider Name an d Address Organization Details Last Updated DateTime 11/13/2023 83 /min ELVIA Godinez [facility] 11/13/2023 11:07:50 Date Recorded Body height Provider Name an d Address Organization Details Last Updated DateTime 12/25/2023 165.1 cm ELVIA Godinez [facility] 12/25/2023 10:03:44 Date Recorded Body mass index (BMI) Body weight Provider Name and Address Organization Details Last Updated DateTime 12/25/2023 40.8 kg/m2 393362.13 g Andreina Steward MA [facility] 0 12/25/2023 10:06:44 Date Recorded Oxygen saturation Oxygen saturation in Arterial blood by Pulse oximetry Provider Name and Address Organization Details Last Updated DateTime 12/25/2023 98 % 98 % Andreina Steward MA [facility] 12/25/2023 10:08:41 Date Recorded Heart rate Provider Name an d Address Organization Details Last Updated DateTime 12/25/2023 75 /min Andreina Steward MA [facility] 12/25/2023 10:08:44 Date Recorded Body height Provider Name an d Address Organization Details Last Updated DateTime 07/25/2024 165.1 cm Chu Hernández MA [facility] 2023 11:23:19 Date Recorded Body mass index (BMI) Body weight Provider Name and Address Organization Details Last Updated DateTime 07/25/2024 38.4 kg/m2 652010.48 g Chu Hernández MA [facility] 07/25/2024 11:26:56 Date Recorded Respiratory rate Provider Name a nd Address Organization Details Last Updated DateTime 07/25/2024 18 /min Chu Hernández MA [facility] 07/25/2024 11:26:57 Date Recorded Oxygen saturation Oxygen saturation in Arterial blood by Pulse oximetry Provider Name and Address Organization Details Last Updated DateTime 07/25/2024 97 % 97 % Chu Hernández MA [facility] 07/25/2024 11:34:18 Date Recorded Heart rate Provider Name an d Address Organization Details Last Updated DateTime 07/25/2024 85 /min Chu Hernández MA [facility] 2023 11:34:21 Date Recorded Body height Provider Name an d Address Organization Details Last Updated DateTime 10/09/2024 165.1 cm Lizette Garland [facility] 10/09/20 08:45:47 Date Recorded Body mass index (BMI) Body weight Provider Name and Address Organization Details Last Updated DateTime 10/09/2024 37.4 kg/m2 468572.28 g Lizette Garland [facility] 10/09/2024 08:58:46 Date Recorded Heart rate Provider Name an d Address Organization Details Last Updated DateTime 10/09/2024 85 /min Lizette Garland [facility] 10/09/20 08:58:55 Date Recorded Oxygen saturation Oxygen saturation in Arterial blood by Pulse oximetry Provider Name and Address Organization Details Last Updated DateTime 10/09/2024 99 % 99 % Lizette Garland [facility] 10/09/2024 08:59:00 Date Recorded Systolic blood pressure Diastolic blood pressure Provider Name and Address Organization Details Last Updated DateTime 11/13/2023 134 mm[Hg] 80 mm[Hg] Andreina Steward MA [facility] 11/13/2023 11:07:42 Date Recorded Systolic blood pressure Diastolic blood pressure Provider Name and Address Organization Details Last Updated DateTime 12/25/2023 122 mm[Hg] 78 mm[Hg] Andreina Steward MA [facility] 12/25/2023 10:08:31 Date Recorded Systolic blood pressure Diastolic blood pressure Provider Name and Address Organization Details Last Updated DateTime 07/25/2024 140 mm[Hg] 80 mm[Hg] Chu Hernández MA [facility] 07/25/2024 11:36:03 Date Recorded Systolic blood pressure Diastolic blood pressure Provider Name and Address Organization Details Last Updated DateTime 07/25/2024 150 mm[Hg] 80 mm[Hg] KARISHMA Dill Attn: [address] [place], [address], [facility] 07/25/2024 12:07:53 Date Recorded Systolic blood pressure Diastolic blood pressure Provider Name and Address Organization Details Last Updated DateTime 10/09/2024 160 mm[Hg] 90 mm[Hg] KARISHMA Dill Attn: [address] [place], [address], [facility] 10/09/2024 09:08:51 Date Recorded Systolic blood pressure Diastolic blood pressure Provider Name and Address Organization Details Last Updated DateTime 10/09/2024 140 mm[Hg] 88 mm[Hg] KARISHMA Dill Attn: [address] [facility], [place], [address], [place] - [facility] 10/09/2024 09:13:05 Social History Question Answer Notes LastModified by Organizat ion Details LastModified Time Tobacco Smoking Status Never Smoker Shanelle ELVIA Johnson null, [place] - [facility] 09/26/2021 08:49:53 Do You Have An Advance Directive? Yes Information not available 09/26/2021 What Is Your Level Of Alcohol Consumption? Occasional Information not available 09/26/2021 Are You Blind Or Do You Have Difficulty Seeing? No Readers Information not available 07/25/2024 What Is Your Level Of Caffeine Consumption? Moderate Coffee/ Tea Information not available 07/25/2024 In The 14 Days Before Symptom Onset, Have You Had Close Contact With A Laboratory-confi rmed COVID-19 While That Case Was Ill? No Information not available 09/26/2021 In The 14 Days Before Symptom Onset, Have You Had Close Contact With A Person Who Is Under Investigation For COVID-19 While That Person Was Ill? No Information not available 09/26/2021 Have You Been To An Area Known To Be High Risk For COVID-19? No Information not available 09/26/2021 Are You Currently Employed? Yes Information not available 09/26/2021 Are You Deaf Or Do You Have Serious Difficulty Hearing? No Some Hearing Challenges Information not available 07/25/2024 What Type Of Diet Are You Following? REGULAR Information not available 07/25/2024 Are There Any Guns Present In Your Home? No Information not available 07/25/2024 What Was The Date Of Your Most Recent Tobacco Screening? 11/13/2023 Information not available 11/13/2023 What Is Your Relationship Status? Information not available 09/26/2021 Do You Use Your Seat Belt Or Car Seat Routinely? Yes Information not available 07/25/2024 Are You Sexually Active? Yes Information not available 09/26/2021 Do You Have Smoke And Carbon Monoxide Detectors In Your Home? Yes Information not available 09/26/2021 Are You Passively Exposed To Smoke? No Information not available 09/26/2021 Do You Use Any Illicit Or Recreational Drugs? No Information not available 09/26/2021 Do You Use Sunscreen Routinely? Yes Yes Information not available 07/25/2024 Has Tobacco Cessation Counseling Been Provided? Yes Information not available 11/13/2023 On What Date Was Tobacco Cessation Counseling Provided? 12/25/2023 Information not available 12/25/2023 Do You Or Have You Ever Used Any Other Forms Of Tobacco Or Nicotine? No Information not available 09/26/2021 Sex: Female Functional Status Question Answer Note LastModified by Organizat ion Details LastModified Time Are you able to care for yourself? Yes Information not available 07/25/2024 What is your exercise level? Occasional Information not available 07/25/2024 Mental Status None recorded. Family History Relationship Description Onset Age of this Age Resolved Age Notes LastModified by Organization Details LastModified Time Father Diabetes mellitus mnelsonma Not available 2020 08:48:26 Father Heart disease mnelsonma Not available 2020 08:48:38 Mother Asthma mnelsonma Not available 09/26/2021 08:48:50 Mother Disorder of thyroid gland mnelsonma Not available 2020 08:49:14 Brother Asthma mnelsonma Not available 09/26/2021 08:48:50 Maternal Grandmother Malignant tumor of ovary mnelsonma Not available 2020 08:49:03 Paternal Grandfather Heart disease mnelsonma Not available 2020 08:49:23 Medical History Condition Response Coronary Artery Disease N High Blood Pressure Y Atrial Fibrillation N Kidney or Bladder Problems N Thyroid Problems N GI Problems N Depression Y COPD N Blood Clots N Skin Problems N Anemia Y Heart Attack ([place]) N Anxiety Disorder Y Diabetes Y Muscle, Joint, or Bone Problems N Seizures/Epilepsy N Acid Reflux (GERD) Y Cancer N Stroke N Asthma N Allergies Y High Cholesterol N Hepatitis N Liver Disease Y Headaches Y Heart Failure N Osteoporosis N Gynecological History Statement/Question Response Date of LMP 04/05/2020 Menses Monthly N Date of Last Pap Smear 04/05/2020 Age at Menarche 14 Current Control Method Tubal Ligat ion Age at First Child 23 LMP Approximate Obstetrics History GPAL:G 2 P 1 0 1 1 Type Value Full Term 1 Spontaneous 1 Living 1 Total 2 Immunizations Vaccine Type Date Status Note Provider Mikal cortez and Address Organization Details Recorded Time Tdap 10/29/2008 completed Not Available [facility] 08/15/2023 01:57:42 Past Encounters Encounter ID Performer Location Encounter Start Date Encounter Closed Date Diagnosis/Indication Diagnosis SNOMED-CT Code Diagnosis ICD10 Code Diagnosis Note [id number] KARISHMA LIU (Adult Med) [address] [place] [phone] 09/26/2021 08:20:09 09/27/2021 11:41:09 Adult health examination 058328587 Z00.00 Presents to establish care. Has not seen PCP in several years. Doing well with no acute complaints . Plans to return after holidays for well woman and routine lab work. Anxiety 17892440 F41.9 Sees psychiatry every 3 months who have her taking sertraline , buspirone, and trazadone. Sees a counselor every 2 weeks. Depressive disorder 3548 9007 F32.A Sees psychiatry every 3 months who have her taking sertraline , buspirone, and trazadone. Sees a counselor every 2 weeks. [id number] KARISHMA LIU (Adult Med) [address] [place] [phone] 01/04/2022 09:58:55 01/05/2022 17:49:11 Gynecologic examination 04220628 Z01.419 Pt with severe anxiety presents for a routine pap. She has not had one in ~10 yrs due to anxiety about coming to the doctor's office. She states she had an abnormal pap ~25 yrs ago with multiple normal paps after that.She denies a FHx of cervical cancer.- UA showed some glucose but otherwise unremarkab le- pap performed today- will call pt w/ results Venereal d isease screening [id number] Z11.3 Here for a routine pap. She denies dysuria, increased urinary urgency or frequency, vaginal discharge or odor, and abdominal pain.UA showed some glucose and pt reports yeast infections when her glucose in high.- nuswab to r/o infection Type 2 tristan betes mellitus 32431515 E11.9 A1C: 9.4 today ( 2)Pt states she was diagnosed with T2DM in 2006 and started on metformin and a sulfonylur ea at that time. She took them for 4-5 yrs but stopped taking them because she was anxious about going to doctor's visits all the time. She states she has been started on medication s multiple times since her original diagnosis but she stops taking them. The last time she had bloodwork was ~8 yrs ago. She states she can tell when her blood sugar is high or low based on symptoms. She gets a headache, polyuria, and yeast infections with hyperglyce selam, and a headache or shakiness with hypoglycem ia.- start low dose metformin, take daily with food- CMP to check liver and kidney function (pt declined CBC and lipids today, she only wants to do one test at a time)- f/u in 1-2 months Screening mammography 24 664794 Z12.31 Never had a mammogramN o FHx of breast cancer- mammogram referral given [id number] KARISHMA ILU (Adult Med) [address] [place] [address] 03/20/2022 10:28:04 03/21/2022 09:06:00 Type 2 diabetes mellitus [id number] E11.9 A1C: 9.4 today (03/20/22), 9.4 ( 2) Pt states she was diagnosed with T2DM in 2006 and started on metformin and a sulfonylur ea at that time. She took them for 4-5 yrs but stopped taking them because she was anxious about going to doctor's visits all the time. Since last visit on 01/04/22 patient says she is having a difficult time reducing her eating of junk food. She is currently on metformin 500mg once daily and checking her daily BS's which range 170-230. - increase dose of metformin to 500mg BID, take daily with food- f/u in 6 weeks, plan to start GLP-1 at next visit to help with DM and weight Morbid obesity [id number] E66.01 BMI 41.9- Advised decreased portion sizes, good food choices, limited eating out or fast food and eliminate soda and juice from diet. Advised physical activity daily and offered encouragem ent to continue with positive changes made so far.- f/u in 6 weeks, plan to start GLP-1 at next visit to help with DM and weight Menopausal syndrome 1237 33509 N95.9 Patient says she has not had a period in 2 years and says she has been perimenopa usal for 1 year. It has worsened in the last 6 months due to increased hot flashes that are occurring 3x/ week. She says she is also experienci ng low sex drive. She has a history of ovarian cysts, tubal ligation, and endometria l ablation due to menorrhagi a. - will check FSH and LH, estradiol, progestero ne, TSH- discussed options including SSRI/SNRI vs HRT, encouraged her to discuss medication s with psych and potentiall y changing sertraline to paroxetine or venlafaxin e Elevated blood-pressure reading without diagnosis of hypertension [id number] R03.0 BP 150/80 todayNo prior history of HTN, notes her BP always increases at doctor's office because she gets nervous but is within normal limits at home- will continue to monitor, need to have BP controlled before we consider starting HRT [id number] KARISHMA LIU (Adult Med) [address] [place] [address] 05/04/2022 09:01:04 05/05/2022 19:54:18 Type 2 diabetes mellitus 02006575 E11.9 A1C: 9.4 (03/20/22), 9.4 ( 2) Pt states she was diagnosed with T2DM in 2006 and started on metformin and a sulfonylur ea at that time. She took them for 4-5 yrs but stopped taking them because she was anxious about going to doctor's visits all the time. Since last visit on 01/04/22 patient says she is having a difficult time reducing her eating of junk food. Currently on metformin 1000 mg BID and checking her daily BS's which range 170-230. - c/w metformin 500 mg QID for now- f/u in 6 weeks, plan to start GLP-1 at next visit to help with DM and weight Morbid obesity 930143359 E66.01 BMI 42.2- Advised decreased portion sizes, good food choices, limited eating out or fast food and eliminate soda and juice from diet. Advised physical activity daily and offered encouragem ent to continue with positive changes made so far.- f/u in 6 weeks, plan to start GLP-1 at next visit to help with DM and weight 05/03/22: Monitor TSH for now. Will re-evaluat e next f/u visit. Menopausal syndrome 1237 61620 N95.9 Patient says she has not had a period in 2 years and says she has been perimenopa usal for 1 year. It has worsened in the last 6 months due to increased hot flashes that are occurring 3x/ week. She says she is also experienci ng low sex drive. She has a history of ovarian cysts, tubal ligation, and endometria l ablation 10 years ago due to menorrhagi a. Admits to having menstrual cycles s/p ablation.L abs showed elevated estrogen level still but the rest were consistent with post-menop ause- discussed options including SSRI/SNRI vs HRT, encouraged her to discuss medication s with psych and potentiall y changing sertraline to paroxetine or venlafaxin e- plan to Monitor estrogen, FSH, LH in 6 months to evaluate perimenopa usal state. Also need to get BP controlled before ever starting HRT Elevated blood-pressure reading without diagnosis of hypertension [id number] R03.0 BP 138/74 today, was elevated at last visit tooNo prior history of HTN, notes her BP always increases at doctor's office because she gets nervous but is within normal limits at home- start lisinopril 10 mg dialy Subclinica l hypothyroidism 30162943 E02 TSH slightly elevated normal T4 with last set of labs- discussed diagnosis of subclinica l hypothyroi dism, she would like to continue to monitor for now rather than start medication [id number] KARISHMA LIU [facility] (Adult Med) [address] [place] [address] 06/15/2022 08:57:53 06/16/2022 13:50:01 Type 2 diabetes mellitus [id number] E11.9 A1C: 8.3 today (06/15/2022 ), 9.4 (03/20/22), 9.4 () Pt states she was diagnosed with T2DM in 2006 and started on metformin and a sulfonylur ea at that time. She took them for 4-5 yrs but stopped taking them because she was anxious about going to doctor's visits all the time. Since last visit on 03/20/22 patient confirms improvemen t in diet, and reduction of nightly desserts. Currently on metformin 500 mg QID and checking her daily BS's which range 170-210. -c/w metformin 500 mg QID-Rx to start Ozempic today-Pt education provided regarding proper administra tion of med-RTC in 3 months Essential hypertension 95707836 I10 BP Today: 120/80 Discussed DASH dietAdvise d 30 minutes of exercise minimum dailyAdvis ed tobacco, alcohol, caffeine all increase BPAdvised goal for BP is <140/90Con tact office if BP is > 140/90 consistent ly discussed consequenc es of HTN including kidney, eye, heart damage, stroke, and even -c/w HCTZ, rx below-RTC 6 months for BP check Menopausal syndrome [id number] 92863 N95.9 Per 05/04/22 visit: patient says she has not had a period in 2 years and says she has been perimenopa usal for 1 year. It has worsened in the last 6 months due to increased hot flashes that are occurring 3x/week. She says she is also experienci ng low sex drive. She has a history of ovarian cysts, tubal ligation, and endometria l ablation 10 years ago due to menorrhagi a. Admits to having menstrual cycles s/p ablation. Labs showed elevated estrogen level still but the rest were consistent with post-menop ause States psych switched sertraline to venlafaxin e, but pt did not end up switching med. States hot flashes have improved and are not problemati c as of right now -c/w sertraline ; call the office if hot flashes resume and she seeks to begin venlafaxin e- plan to Monitor estrogen, FSH, LH in 6 months to evaluate perimenopa usal state. Also need to get BP controlled before ever starting HRT Morbid obesity [id number] E66.01 BMI 41.9 today (06/15/22)B [place] 42.2 (05/04/22)- Advised decreased portion sizes, good food choices, limited eating out or fast food and eliminate soda and juice from diet. Advised physical activity daily and offered encouragem ent to continue with positive changes made so far.- Pt starting Ozempic today to help with DM and weight Dysfunctio n of bilateral eustachian tubes [id number] H69.93 Pt presenting with bilateral aural fullness x 2 weeks. Denies otalgia, fever, tinnitus, hearing loss. Pt has been taking Temi daily x years-Swit ch Temi to Zyrtec; rx below-Star t flonase daily-RTC if sx worsen or do not improve [id number] KARISHMA LIU (Adult Med) [address] [place] [address] 09/08/2022 09:26:02 09/11/2022 13:47:27 Type 2 diabetes mellitus 43016369 E11.9 A1C: 6.6 today ( 2), 8.3 (06/15/2022 ), 9.4 (03/20/2022 ), 9.4 () Fasting BS reported: 130-140 Statin: none, will check lipid panel today Foot Exam: normal 05/04/2022 Eye exam: no eye exams in last few years. Discussed importance of yearly eye exams to screen for diabetic retinopath y. Diabetic ophtho referral. Microalbum in: Will check today Pneumovax 23: Discussed with patient, will defer to next visit (she gets anxiety when dealing with multiple issues at one time) - 8 lbs weight loss from last visit, down to 244lbs today- Continue metformin 500 mg QID, Ozempic-RT C in 3 months Essential hypertension 97769320 I10 BP Today: 130/80 Discussed DASH dietAdvise d 30 minutes of exercise minimum dailyAdvis ed tobacco, alcohol, caffeine all increase BPAdvised goal for BP is <140/90Con tact office if BP is > 140/90 consistent ly Discussed consequenc es of HTN including kidney, eye, heart damage, stroke, and even -Continue HCTZ 25mg Dysfunctio n of bilateral eustachian tubes [id number] 444023 H69.93 Requesting refill on Cetirizine with 90 day supply, working well for her- sent to pharmacy [id number] KARISHMA LIU (Adult Med) [address] [place] [address] 12/18/2022 08:51:28 12/18/2022 09:33:18 Type 2 diabetes mellitus 72855059 E11.9 A1C: 6.1 today (12/18/2022 ), 6.6 ( 2), 8.3 (06/15/2022 ), 9.4 (03/20/2022 ), 9.4 ( 2) Medication s: metformin 500 mg QID and victoza 1.2 mg daily Fasting BS reported: 110-120 Statin: NL 09/08/2022 , agreed upon without medication for now but will continue to monitor Foot Exam: normal 05/04/2022 Eye exam: no eye exams in last few years. Discussed importance of yearly eye exams to screen for diabetic retinopath y. Diabetic ophtho referral. Microalbum in: Will check today Pneumovax 23: Discussed with patient, will defer to next visit (she gets anxiety when dealing with multiple issues at one time) - continued weight loss, down to 237 lbs today- Continue metformin 500 mg QID- Ozempic on back order, c/w Victoza for now-RTC in 3 months Morbid obesity 564556569 E66.01 BMI today 39.4 (12/18/2022 )BMI 41.9 (06/15/22)B [place] 42.2 (05/04/22)- Advised decreased portion sizes, good food choices, limited eating out or fast food and eliminate soda and juice from diet. Advised physical activity daily and offered encouragem ent to continue with positive changes made so far.- seeing good progressiv e weight loss with GLP-1 medication , diet changes and exercise- requesting referral for bariatric surgery today, provided self-refer ral number Essential hypertension [id number] I10 BP Today: 144/92 and 140/90Pati ent gets anxious at doctor's office, states her BP is always normal at home Discussed DASH dietAdvise d 30 minutes of exercise minimum dailyAdvis ed tobacco, alcohol, caffeine all increase BPAdvised goal for BP is <140/90Con tact office if BP is > 140/90 consistent ly Discussed consequenc es of HTN including kidney, eye, heart damage, stroke, and even -Continue HCTZ 25mg- keep close eye on BP at home [id number] KARISHMA LIU (Adult Med) [address] [place] [address] 03/19/2023 08:56:02 03/20/2023 13:23:05 Obesity [id number] E66.9 BMI today 39 (03/19/23)B [place] 39.4 (12/18/2022 )BMI 41.9 (06/15/22)B [place] 42.2 (05/04/22)- Advised decreased portion sizes, good food choices, limited eating out or fast food and eliminate soda and juice from diet. Advised physical activity daily and offered encouragem ent to continue with positive changes made so far.- seeing good progressiv e weight loss with GLP-1 medication , diet changes and exercise Type 2 tristan betes mellitus 56673527 E11.9 A1C: 6.1 (12/18/2022 ), 6.6 (), 8.3 (06/15/2022 ), 9.4 (03/20/2022 ), 9.4 () Medication s: metformin 500 mg QID and Ozempic 0.5 mg (1 more month) then will start victoza 1.2 mg daily Fasting BS reported: 110-120 Statin: NL 09/08/2022 , agreed upon without medication for now but will continue to monitor Foot Exam: normal 05/04/2022 Eye exam: no eye exams in last few years. Discussed importance of yearly eye exams to screen for diabetic retinopath y. Diabetic ophtho referral. Microalbum in: normal 09/08/2022 Pneumovax 23: Discussed with patient, will defer to next visit (she gets anxiety when dealing with multiple issues at one time) - provided informatio n at today's visit - continued weight loss, down to 234 lbs today- Continue metformin 500 mg QID- Ozempic (has 1 more month) then will switch to Rybelus if covered; if not covered, will start Victoza- If Rybelsus is covered, take 1 pill in the morning on empty stomach, 30 minutes before eating-RTC in 3 months Essential hypertension [id number] I10 03/19/23: BP 140/782/: BP 144/92 and 140/90Pati ent gets anxious at doctor's office, states her BP is always normal at homePrevio usly on lisinopril , which caused pt blurry vision Discussed DASH dietAdvise d 30 minutes of exercise minimum dailyAdvis ed tobacco, alcohol, caffeine all increase BPAdvised goal for BP is <140/90Con tact office if BP is > 140/90 consistent ly Discussed consequenc es of HTN including kidney, eye, heart damage, stroke, and even - Continue HCTZ 25mg- Start amlodipine 5 mg daily- Keep close eye on BP at home; If BP continues to be high, contact the office and let us know Screening mammography 24 597381 Z12.31 Last mammogram 02/2022No FHx of breast cancer- mammogram referral given Yash [id number] L71.9 Complaints of redness across the face- Start metronidaz ole topical gel twice daily- If does not improve, referral to derm in the future Bilateral carpal tunnel syndrome [id number] 2395803 G56.03 R>LComplai ns of numbness and pain in the hands and wrist; worse at nightWears braces at night- Referral to orthopedic surgeon- Continue to wear braces at night Ulnar nerv e entrapment at elbow 592473014 G56.21 Right hand pain of the 4th and 5th fingers, worse at nightPain can move up to the elbow- Referral to orthopedic surgeon- Continue to wear braces at night Depression screening 171 653258 Z13.31 PHQ 2/9 was negative in office today (3 out of 27) [id number] KARISHMA LIU (Adult Med) [address] [place] [address] 05/24/2023 08:54:15 05/25/2023 16:59:29 Type 2 diabetes mellitus 81617048 E11.9 A1C: 6.2 (05/24/23) 6.1 (12/18/2022 ), 6.6 ( 2), 8.3 (06/15/2022 ), 9.4 (03/20/2022 ), 9.4 ( 2) Medication s: metformin 500 mg QID and will start victoza 1.2 mg daily this coming Sunday (last ozempic taken previous Sunday) Fasting BS reported: around 120 Statin: NL 09/08/2022 , agreed upon without medication for now but will continue to monitor Foot Exam: normal 05/24/2023 Eye exam: no eye exams in last few years. Discussed importance of yearly eye exams to screen for diabetic retinopath y. Has diabetic ophtho referral, planning on making appointmen t soon Microalbum in: normal 09/08/2022 Pneumovax 23: Discussed with patient, was going to do at today's visit (she gets anxiety when dealing with multiple issues at one time, deferred last visit) - wants to make nursing visit to receive it in a couple weeks when her is home to come with her. - continued weight loss, was down to 234 lbs, frustrated that up to 237 lbs. Encouragem ent given.- Continue metformin 500 mg QID- Switch to Victoza this week, may start at 1.2, may increase in future-RTC in 3 months Bilateral carpal tunnel syndrome [id number] 5276267 G56.03 R>LComplai ns of numbness and pain in the hands and wrist; worse at nightWears braces at night- Referral to orthopedic surgeon, has appointmen t coming up. Completed nerve conduction study- confirmed bilateral carpal tunnel, R>L- Continue to wear braces at night Essential hypertension 09478090 I10 05/24/23: BP 126/785/22 /: BP 140/782/: BP 144/92 and 140/90 Previously on lisinopril , which caused pt blurry visionStat es at home measures are usually 130s/78 Discussed DASH dietAdvise d 30 minutes of exercise minimum dailyAdvis ed tobacco, alcohol, caffeine all increase BPAdvised goal for BP is <140/90Con tact office if BP is > 140/90 consistent ly Discussed consequenc es of HTN including kidney, eye, heart damage, stroke, and even - Continue HCTZ and amlodipine - Keep close eye on BP at home; If BP high, contact the office and let us know Yash [id number] L71.9 Complains of redness across the face- prescribed metronidaz ole topical gel twice daily, states spends a lot of time out in the sun and planning on starting in the fall- If does not improve, referral to derm in the future Obesity 580524762 E66.9 BMI 39 (03/19/23), back to 39.4 (05/24/23)B [place] 39.4 (12/18/2022 )BMI 41.9 (06/15/22)B [place] 42.2 (05/04/22)- Advised decreased portion sizes, good food choices, limited eating out or fast food and eliminate soda and juice from diet. Advised physical activity daily and offered encouragem ent to continue with positive changes made so far.- seeing good progressiv e weight loss with GLP-1 medication , diet changes and exercise Active or passive immunization 334536810 Z23 Tdap 2008, wishes to make nursing appointmen t to receive at same time a PCV Screening mammography 24 614536 Z12.31 No FHx of breast cancer-Carisa ryan completed 04/24/2023, negative Otalgia of right ear 920 4530290 H92.01 Complainin g of aural fullness and ear pain, R>L. Has root canal on R side scheduled. Admits to seasonal allergies, takes zyrtec which provides mild relief but not complete. No signs of otitis externa or media on PE.-will see if resolves after root canal, potential referred pain-reass ess when RTC in 3 months, if still present suspect seasonal rhinitis [id number] KARISHMA LIU (Adult Med) [address] [place] [address] 08/20/2023 08:56:01 08/23/2023 10:16:14 Type 2 diabetes mellitus 02147332 E11.9 A1C: 6.5 today ( 3), 6.2 (05/24/23) 6.1 (12/18/2022 ), 6.6 ( 2), 8.3 (06/15/2022 ), 9.4 (03/20/2022 ), 9.4 ( 2) Medication s: metformin 500 mg QID, Victoza daily until 2 days ago due to abdominal pain Fasting BS reported: around 120 Statin: NL 09/08/2022 , agreed upon without medication for now but will continue to monitor Foot Exam: normal 05/24/2023 Eye exam: no eye exams in last few years. Discussed importance of yearly eye exams to screen for diabetic retinopath y. Has diabetic ophtho referral, planning on making appointmen t soon Microalbum in: normal 09/08/2022 Pneumovax 23: Discussed with patient, was going to do at today's visit (she gets anxiety when dealing with multiple issues at one time, deferred last visit) - wants to make nursing visit to receive it in a couple weeks when her is home to come with her. - Continue metformin 500 mg QID- Switch to Victoza to trulicity- repeat labs-RTC in 3 months Bilateral carpal tunnel syndrome [id number] 8429605 G56.03 R>LComplai ns of numbness and pain in the hands and wrist; worse at nightWears braces at night- Referral to orthopedic surgeon, has appointmen t coming up. Completed nerve conduction study- confirmed bilateral carpal tunnel, R>L- Continue to wear braces at night Essential hypertension 31433093 I10 BP Today: 134/88 Previously on lisinopril , which caused pt blurry visionStat es at home measures are usually 130s/78 Discussed DASH dietAdvise d 30 minutes of exercise minimum dailyAdvis ed tobacco, alcohol, caffeine all increase BPAdvised goal for BP is <140/90Con tact office if BP is > 140/90 consistent ly Discussed consequenc es of HTN including kidney, eye, heart damage, stroke, and even - Continue HCTZ and amlodipine - Keep close eye on BP at home; If BP high, contact the office and let us know Yash 565570854 L71.9 Complains of redness across the face- prescribed metronidaz ole topical gel twice daily, states spends a lot of time out in the sun and planning on starting in the fall- If does not improve, referral to derm in the future Active or passive immunization 969932898 Z23 Tdap 2008, plan was to complete today but ended up forgetting and patient left without giving immunizati on, called and reminded her to come back for NO visit Dysfunctio n of bilateral eustachian tubes [id number] 814442 H69.93 Requesting refill on Cetirizine with 90 day supply, working well for her- sent to pharmacy Morbid obesity 231945933 E66.01 - Advised decreased portion sizes, good food choices, limited eating out or fast food and eliminate soda and juice from diet. Advised physical activity daily and offered encouragem ent to continue with positive changes made so far. Thyroid nodule 776970558 E04.1 Seen on recent MRI of her neck, f/u imaging with US completed- will recheck labs- bring up copy of imaging results Screening for malignant neoplasm of colon 896042638 Z12.11 Plans to get colonoscop y next year, can't do everything at once or it overwhelms her. Adult heal th examination 834345391 Z00.00 Presents today with biometric paperwork that needs to be completed for her work annually that includes lab results- labs ordered today, will complete paperwork once labs are reviewed [id number] MD Shawn Ross (Adult Med) [address] [place] [address] 11/13/2023 10:54:15 11/16/2023 14:34:52 Type 2 diabetes mellitus 05948765 E11.9 Patient will do occasional fasting acu checks and bring them in to next appointmen t. Will get Chem panel today. Continue present medication s. Thyroid nodule 248791352 E04.1 Will repeat TSH at follow up in six weeks. Continue present medication . Will get copy of MRI before next appointmen t and then we will proceed with ultrasound . Rhinitis 54274980 J00 Trial of Flonase. No evidence of ear infection. Ear issues likely related to sinus congestion and rhinitis. Pain of ear 184621574 H9 2.09 Ear pain but ear exam was normal, likely secondary to rhinitis and sinus issues. Will treat with steroid nose spray. Follow up in six weeks. Bilateral carpal tunnel syndrome [id number] 6241638 G56.03 Is waiting to be cleared for surgery. Will wait to complete thyroid work up and get additional blood work. Patient still needs CBC. Patient only likes to get one blood test at a time because only likes to discuss one result at a time. Body mass index 40+ - severely obese 931503524 Z68.41 Discussed importance of diet and exercise. Patient has been struggling lately. Will repeat TSH at follow up after she has been on the medication for eight weeks to see what the status of her thyroid is. She feels like she has been struggling to loose weight despite working on it. Thyroid may have been a contributi ng factor. Once the thyroid is normalized we will discuss a diet and exercise plan in more detail. She has a family history of heart disease, and I stressed the importance of moving every day. [id number] Shelbi Rome MD [facility] (Adult Med) [address] [place] [address] 12/25/2023 10:01:30 12/26/2023 13:08:44 Eruption 068863996 R21 Rash is nonspecifi c and faint today. Will have her avoid using steroid cream and return in one month for me to re evaluate. Thyroid nodule 283858904 E04.1 Ultrasound in January. Hypothyroidism 14779776 E03.9 Last TSH normal. Continues with weight gain despite Trulicity. Repeat TSH today. Type 2 tristan betes mellitus 86314001 E11.9 Last Hemoglobli n A1C 6.5. Continue present medication . Body mass index 40+ - severely obese 774100300 Z68.41 Patient frustrated that she is gaining weight despite Trulicity. Will check thyroid. Will evaluate lifestyle closer. Asked her to keep journal. Stressed importance of moving every day. Patient will keep a journal of diet and exercise, along with fluid intake. Essential hypertension 91070373 I10 Blood pressure controlled . Continue present medication . Dysfunctio n of bilateral eustachian tubes 1825018323 580302 H69.93 Rosacea 418710398 L71.9 [id number] KARISHMA Dill [facility] [place] [address] [place] [address] 07/25/2024 11:11:25 07/25/2024 12:13:36 Type 2 diabetes mellitus 34327842 E11.9 Boost Ozempic to 1 mg weekly dosing. Patient is currently still up-to-date on labs from previous provider. Depressive disorder 3864 2693 F32.A Patient is stable on sertraline 100 mg daily Anxiety 00564173 F41.9 Patient is stable on BuSpar 10 mg twice daily Benign ess ential hypertension 5142014 I10 Blood pressure is slightly elevated today in the 140-1 50/80 range. She is taking medication s. We will have her monitor home readings and we will follow-up on this at the next appointmen t. Lower salt low caffeine and exercise are encouraged at this time. Hypothyroi dism due to Jose D's thyroiditis 039549072 E06.3 Labs are still up-to-date patient will continue 75 mcg of Synthroid daily Long-term drug therapy 342721189 Z79.899 Routine metabolic panel is ordered as this test is due Body mass index 30+ - obesity 485212020 Z68.38 Obesity 293023344 E66.8 Cholesterol screening 27 3165965 Z13.220 Fasting lipid panel is also due [id number] KARISHMA Dill [facility] [address] [place] [address] 10/09/2024 08:43:18 10/09/2024 09:31:17 Type 2 diabetes mellitus 09736464 E11.9 stable on Ozempic to 1 mg weekly dosing and metformin ER 500mg two daily. . due for updated A1c. last lab was 6.5% Benign ess ential hypertension 7865270 I10 borderline 140/88. Does tend to run a little elevated in clinic environmen t compared to home readings. patient is taking hydrochlor othiazide 25 mg daily and amlodipine 5 mg daily Hypothyroi dism due to Jose D's thyroiditis 439154870 E06.3 stable on levothyrox ine 88mcg daily. due for updated TFTs Depressive disorder 3548 9007 F32.A Patient is stable on sertraline 100 mg daily Anxiety 74233813 F41.9 Patient is stable on Buspar 10 mg twice daily Long-term drug therapy 963072678 Z79.899 Routine CBC and CMP labs are due Body mass index 30+ - obesity 101070543 Z68.37 BMI is 37.4 Obesity 894746113 E66.9 discussed healthy diet, exercise, controllin g carbohydra aaliyah and added sugars in the diet Eruption 811388145 R21 refill on steroid cream for PRN use. Carpal farhad rell syndrome 91187174 G56.03 Patient is cleared for upcoming carpal tunnel surgery as needed [id number] KARISHMA Dill [facility] [address] [place] [address] 10/31/2024 16:10:45 11/03/2024 15:04:23 Pre-surgery testing 111176587 Z01.89 Health Concerns Section Related Observation LastModified by Organization Thee nolan LastModified Time None Recorded Concern Status LastModified by Organization Details LastModified Time None Recorded Advance Directives Directive Y: Payers Encounter Date Sequence Insurance Name Policy Number Policy Nino Covered Member ID Nino Member ID Guarantor Name 11/13/2023 1 [employer] [id number] Laura Elmoreoberts [id number] Laura Brody 12/25/2023 1 [place] [id number] 9 Laura Stone Brody [id number] Laura Brody 07/25/2024 1 [place] [id number] 9 Laura Stone Brody [id number] Laura Brody 10/09/2024 1 [place] [id number] 9 Laura Stone Brody [id number] Laura Brody 10/31/2024 1 [place] [id number] 9 Laura Stone Brody [id number] Laura Elmoreoberts Notes Date Note Type Note Provider Name and Address Organization Details Recorded Time 11/13/19 24 text/ht ml establish care, diabetes, anxiety, sleep problems, hypertension, blood pressure at home lower, 120-130 systolic at home and 80 diastolic, supposed to have carpal tunnel surgery but that was postponed because of thyroid work up, had MRI or CT on neck and saw nodule on thyroid, that led to thyroid evaluation, do not have copy of imaging with thyroid nodule, to be released for carpal tunnel surgery needs EKG, has OCD and has been on medicine and it has been at bay, has been worse the last month or two, currently having ear issues, Sunday pain in right ear, had a double ear infection as an adult in 2017 and since then ear issues have been more of a problem, tender in cheeks always, always has allergy issues, diabetes is well controlled, takes Trulicity, last year was on Victoza and was switched to Trulicity, last week started having stomach pain for two days but that has stopped, switched to Trulicity three months ago, likes dessert and has a hard time with diet, does not exercise, taking levothyroixine since September 17, had a follow up TSH about a month after started the medication and it was normal, is sleeping better since started the medicine, not taking Trazadone every night, believes sleeping problems are related to emotional issues, worse after dad and with menopause, some snoring Shelbi Rome MD Attn: Accounting, [address] [facility], [place], [address], [facility] 11/13/2023 16:51:50 12/25/19 24 text/ht ml continues to gain weight despite starting Trulicity, started Trulicity the same time as thyroid medicine and that is around when rash started, that was about three months ago, rash started with one little patch on back of left leg, white in middle red around, now on outside of both legs, sometimes itches, started using OTC hydrocortisone cream, goes away and comes back, more spots, no stomach pains, sugars are good, appetite decreased, is getting imaging of thyroid in January, ear pain better Shelbi Rome MD Attn: Accounting, [address] [facility], [place], [address], [facility] 12/25/2023 10:43:41 07/25/20 24 text/ht ml Anxiety/DepressionReported bypatient.Notes:For anxiety patient is taking sertraline 100 mg daily and BuSpar 10 mgDiabetesReported bypatient.Notes:Patient is taking metformin 1000 mg total daily and Ozempic dosing as directed for diabetes management with no complaintsHypertensionReported bypatient.Notes:For hypertension patient is taking hydrochlorothiazide 25 mg daily and amlodipine 5 mg dailyInsomniaReported bypatient.Notes:Patient is taking trazodone 50 mg p.o. q.h.s. for sleep with improvementThyroidReported bypatient.Notes:Patient is taking Synthroid 75 mcg daily for thyroid management KARISHMA Dill Attn: Accounting, [address] [facility], [place], [address], [facility] 08/13/2024 19:12:49 10/09/20 24 text/ht ml Anxiety/DepressionReported bypatient.Notes:For anxiety patient is taking sertraline 100 mg daily and BuSpar 10 mgDiabetesReported bypatient.Notes:Patient is taking metformin 1000 mg total daily and Ozempic dosing as directed for diabetes management with no complaintsGeneric HPI TemplateReported bypatient.Notes:Pt needs a letter stating she is cleared for carpal tunnel surgery.Hypertension F/UReported bypatient.Associated Symptoms:no dizziness; no lightheadedness; no chest pain; no shortness of breath; no palpitations; no edema; no calf pain with exertion Lifestyle:regular exercise; limiting/avoiding salt Medications:taking medications as directed; no side effects from medicationNotes:When checking at home they are normal readings. States always high when she comes in here.patient is taking hydrochlorothiazide 25 mg daily and amlodipine 5 mg dailyInsomniaReported bypatient.Notes:Patient is taking trazodone 50 mg p.o. q.h.s. for sleep with improvementThyroidReported bypatient.Notes:Patient is taking Synthroid 75 mcg daily for thyroid management KARISHMA Dill Attn: Accounting, [address] [place], [address], [facility] 10/26/2024 20:16:27 OBGyn Episode Ob Episode Information Episode Created Date Number of Fetuses Patient Bloodtype Patient rh Status Prepregnancy Weight lbs Domestic Partner Domestic Partner Phone Father Name Inspector Publications Status 09/26/20 21 1 CLOSED Fetus Data First Name Last Name Admitted to NICU Weight (g) Sex Living Outcome Pediatric Complications Fetus ID Race Codes Race Delivery Type F Full Term [id number] Vishnu Calculation Initial Vishnu Date Initial Exam Date Initial Exam Provider Initial Ultrasound Date Last Menstrual Period Date Ultra Sound Weeks Gestation 0 Eighteen To Twenty Week Vishnu Update Ultra Sound Date Fundal Height At Umbil Quickening Date Ultra Sound Latest Weeks Gestation Final Vishnu Confirmed By Final Vishnu Confirmed Date Final Vishnu Date Ultra Sound Latest Days Gestation 0 0 Menstrual History Last Menstrual Date Menses Monthly On Bcp Conception Prior Menses Frequency Hcg Plus Date Menarche Onset Age Delivery Information Delivery Date Delivery Type Labor Anesthesia Weeks Gestation Incision Type Labor Labor Length Hrs Delivered By Post Complications Tubal Sterilization Discharge Date Comments 4 Discharge Information Feeding Method Contraceptive Method Maternal HG B and HCT Levels
--- OUTSIDE RECORDS SUMMARY | 2024-11-25 09:56 | XMS_ITS | Clinical Summary ---
Author Organization [facility] [employer] Address [address] [place] [address] Care Team Providers Care Environmental Remediation Specialist Name Role Phone Unavailable Primary Care Provider Unavailabl e Source Comments [facility],non-owned Affiliates and Associated Physician Practices is amultiple site organization consisting of ambulatory clinics and hospital sitesin [place], [place], [place] and [place]. This disclosure is being madepursuant to the Care Everywhere program and may not contain all information available regarding this patient. Last updated 18.[facility] [employer] Allergies No known active allergies Medications * Be aware that medications may not be up to date on this document. Alwaysverify current medications with the patient. Medication Sig Dispensed Refills Start Date End Date Status METFORMIN HCL ER, MOD, PO Active Fexofenadine HCl (RHEA PO) Active fluticasone propionate (FLONASE) 50 MCG/ACT nasal spray [place] 2 sprays into each nostril once daily 1 bottles 07/25/2018 Active Family History Medical History Relation Name Comments Diabetes Father Hypertension Father Relation Name Status Comments Father Alive Mother Alive Social History Tobacco Use Types Packs/Day [...] 07/25/2018 4:37 PM CDT Plan of Treatment Health Maintenance Due Date Last Done Comments COLOGUARD (AGES 45-75) - COL ON CA SCREENING 1972 COLON MONITORING 1972 COLONOSCOPY - COLON CA SCREENING 1972 CT COLONOGRAPHY - COLON CA SCREENING 1972 Colorectal Cancer Screening 1972 FIT - COLON CA SCREENING 1972 FLEX SIG - COLON CA SCREENING 1972 LIPID TESTING 1972 MAMMOGRAM 1972 PAP SMEAR 1972 HIV SCREENING 1987 HEPATITIS C SCREENING 11/24/1990 DTAP/TDAP/TD VACCINES (1 - Tdap) 1991 HEPATITIS B VACCINE (1 of 3 - 19+ 3-dose series) 1991 SCREENING FOR DIABETES 07/25/2018 PNEUMOCOCCAL VACCINE 50+ (1 of 1 - PCV) 2022 ZOSTER VACCINE (1 of 2) 2022 COVID-19 VACCINE (1 - 2023-2 5 season) 2024 INFLUENZA VACCINE (#1) 2024 DEPRESSION SCREENING 10/29/2024 HIB VACCINE Aged Out No longer eligi ble based on patient's age to complete this topic HPV VACCINE Aged Out No longer eligi ble based on patient's age to complete this topic MENINGOCOCCAL (Group B) VACCINE Aged Out No longer eligible based on patient's age to complete this topic MENINGOCOCCAL VACCINE Aged Out No gutierrez patricia eligible based on patient's age to complete this topic PNEUMOCOCCAL VACCINE Aged Out No long er eligible based on patient's age to complete this topic
--- OUTSIDE RECORDS SUMMARY | 2024-11-25 09:56 | XMS_ITS ---
Author Organization [facility] [place] Address [address] [place] [address] Care Team Providers Care Business Transformation Consultant Name Role Phone Dilia Doherty Unavailable [phone] Allergies Allergen (clinical drug ingredient) Drug/Non Drug Allergy documented on EMR Reaction Allergy Type Onset Date Status naproxen Naproxen Unknown Drug Allergy 02/25/2024 Active REASON FOR VISIT medication management Medications Medication SIG (Take, Route, Frequency, Duration) Notes Start Date End Date Status Fluticasone Propionate Diskus 50 MCG/ACT Inhalation *Reorder from [employer] for eRx and Interaction Alerts* 02/25/2024 Active Phenazopyridine HCl 200 MG Oral 02/25/2024 Active metFORMIN HCl ER 500 MG Oral 02/25/2024 Active traZODone HCl 50 MG 1 tablet at bedtime Oral at bedtime for 90 days Active Sertraline HCl 100 MG 1 tablet Oral Once a day for 90 days Active metroNIDAZOLE 0.75 % External 02/25/2024 Active busPIRone HCl 10 MG 1 tablet Oral three times a day for 90 days Active hydroCHLOROthiazide 25 MG Oral 02/25/2024 Active Nitrofurantoin Monohyd Macro 100 MG Oral 02/25/2024 Active amLODIPine Besylate 5 MG Oral 02/25/2024 Active Ketoconazole 2% External 02/25/2024 Act radha TRUEPLUS PEN NEEDLE 32 gauge x MISCELLANEOUS *Reorder from [employer] for eRx and Interaction Alerts* 02/25/2024 Active Ozempic (0.25 or 0.5 MG/DOSE) 2 MG/3ML Subcutaneous *Pick strength-form from [employer] for eRX* 02/25/2024 Active Cetirizine HCl 10 MG Oral 02/25/2024 Active Synthroid 75 MCG Oral 02/25/2024 Ac tive Fluconazole 150 MG Oral 02/25/2024 Active Encounters Encounter Location Date Provider Diagnosis [facility] [address] [place] [address] 08/29/2024 Dilia Doherty Major depressive disorder, recurrent, mild F33.0 ; Generalized anxiety disorder F41.1 ; Primary insomnia F51.01 and Post-traumatic stress disorder, chronic F43.12 Assessments Encounter Date Diagnosis (ICD Code) Assessment Notes Treatment Notes Treatment Clinical Notes Section Notes 08/29/2024 Major depressive disorder, recurrent, mild (ICD-10 - F33.0) Preventing Depression From Coming Back: Care Instructions material was published, Seasonal Affective Disorder: Care Instructions material was published, Depression Treatment: Care Instructions material was published 1. Recurrent major depressive episodes, mild - Sertraline 100 mg daily monitor B/P Medication Management and Follow-Up- Plan:- Schedule follow-up appointments every 2-3 months to monitor the patient's response to the medication regimen.- Reinforce the importance of avoiding recreational drug use due to potential neurotoxicity and interactions with prescribed medications. 2. Generalized anxiety disorder - Zoloft 100 mg daily Buspar 10 mg three times a day Xanax 0.5 mg as needed for flights only # 4 obtain labs PCP educated on all medications, benefits, side effects and risk, and educated on depression, anxiety, and ADHD, mood d/o and educated on compliance of medications, metabolic and movement d/o education appointment is, continue therapy discussion with patient about course of treatment and patient instructions. education on serotonin syndrome SSRI/SNRI side effects discussed including but not limited to, gastric upset, nausea, vomiting, diarrhea and/or constipation, weight changes, sexual side effects including loss of libido, increased suicidal thoughts/behavio rs in children and young adults, and serotonin syndrome. 3. Primary insomnia - Melatonin 5-10 mg OTC at bedtime Trazodone 50 mg at bedtime 4. Long-term drug therapy 08/29/2024 Generalized anxiety disorder (ICD-10 - F41.1) Learning About Generalized Anxiety Disorder material was published, Generalized Anxiety Disorder: Care Instructions material was published, Learning About Anxiety Disorders material was published 1. Recurrent major depressive episodes, mild - Sertraline 100 mg daily monitor B/P Medication Management and Follow-Up- Plan:- Schedule follow-up appointments every 2-3 months to monitor the patient's response to the medication regimen.- Reinforce the importance of avoiding recreational drug use due to potential neurotoxicity and interactions with prescribed medications. 2. Generalized anxiety disorder - Zoloft 100 mg daily Buspar 10 mg three times a day Xanax 0.5 mg as needed for flights only # 4 obtain labs PCP educated on all medications, benefits, side effects and risk, and educated on depression, anxiety, and ADHD, mood d/o and educated on compliance of medications, metabolic and movement d/o education appointment is, continue therapy discussion with patient about course of treatment and patient instructions. education on serotonin syndrome SSRI/SNRI side effects discussed including but not limited to, gastric upset, nausea, vomiting, diarrhea and/or constipation, weight changes, sexual side effects including loss of libido, increased suicidal thoughts/behavio rs in children and young adults, and serotonin syndrome. 3. Primary insomnia - Melatonin 5-10 mg OTC at bedtime Trazodone 50 mg at bedtime 4. Long-term drug therapy 08/29/2024 Primary insomnia (ICD-10 - F51.01) Insomnia: Care Instructions material was published, Learning About Sleeping Well material was published 1. Recurrent major depressive episodes, mild - Sertraline 100 mg daily monitor B/P Medication Management and Follow-Up- Plan:- Schedule follow-up appointments every 2-3 months to monitor the patient's response to the medication regimen.- Reinforce the importance of avoiding recreational drug use due to potential neurotoxicity and interactions with prescribed medications. 2. Generalized anxiety disorder - Zoloft 100 mg daily Buspar 10 mg three times a day Xanax 0.5 mg as needed for flights only # 4 obtain labs PCP educated on all medications, benefits, side effects and risk, and educated on depression, anxiety, and ADHD, mood d/o and educated on compliance of medications, metabolic and movement d/o education appointment is, continue therapy discussion with patient about course of treatment and patient instructions. education on serotonin syndrome SSRI/SNRI side effects discussed including but not limited to, gastric upset, nausea, vomiting, diarrhea and/or constipation, weight changes, sexual side effects including loss of libido, increased suicidal thoughts/behavio rs in children and young adults, and serotonin syndrome. 3. Primary insomnia - Melatonin 5-10 mg OTC at bedtime Trazodone 50 mg at bedtime 4. Long-term drug therapy 08/29/2024 Post-traumatic stress disorder, chronic (ICD-10 - F43.12) Post-Traumatic Stress Disorder (PTSD): Care Instructions material was published 1. Recurrent major depressive episodes, mild - Sertraline 100 mg daily monitor B/P Medication Management and Follow-Up- Plan:- Schedule follow-up appointments every 2-3 months to monitor the patient's response to the medication regimen.- Reinforce the importance of avoiding recreational drug use due to potential neurotoxicity and interactions with prescribed medications. 2. Generalized anxiety disorder - Zoloft 100 mg daily Buspar 10 mg three times a day Xanax 0.5 mg as needed for flights only # 4 obtain labs PCP educated on all medications, benefits, side effects and risk, and educated on depression, anxiety, and ADHD, mood d/o and educated on compliance of medications, metabolic and movement d/o education appointment is, continue therapy discussion with patient about course of treatment and patient instructions. education on serotonin syndrome SSRI/SNRI side effects discussed including but not limited to, gastric upset, nausea, vomiting, diarrhea and/or constipation, weight changes, sexual side effects including loss of libido, increased suicidal thoughts/behavio rs in children and young adults, and serotonin syndrome. 3. Primary insomnia - Melatonin 5-10 mg OTC at bedtime Trazodone 50 mg at bedtime 4. Long-term drug therapy Plan Of Treatment Medication Medication Name Sig Start Date Stop Date Notes traZODone HCl 50 MG 1 tablet at bedtime Oral at bedtime for 90 days Sertraline HCl 100 MG 1 tablet Oral Once a day for 90 days busPIRone HCl 10 MG 1 tablet Oral three times a day for 90 days 11/27/2024 Treatment Notes Assessment Notes Major depressive disorder, recurrent, mi ld Preventing Depression From Coming Back: Care Instructions material was published, Seasonal Affective Disorder: Care Instructions material was published, Depression Treatment: Care Instructions material was published Generalized anxiety disorder Learning Ab out Generalized Anxiety Disorder material was published, Generalized Anxiety Disorder: Care Instructions material was published, Learning About Anxiety Disorders material was published Primary insomnia Insomnia: Care Instr uctions material was published, Learning About Sleeping Well material was published Post-traumatic stress disorder, chronic Post-Traumatic Stress Disorder (PTSD): Care Instructions material was published Next Appt Details Follow Up: 3 Months, Reason: f/u rx Provider Name:iDlia Doherty , 12/29/2024 08:15:00 AM, [address], [facility] [address], [place], [address], Progress Notes * CAROLE SAMUELOB:[birth year] (53 yo F)Acc No.[id number]:08/29/2024 Patient:?KEELEY SAMUEL Provider:?DARLENE WAKEFIELDHNP :1970???Age:53 Y???Sex:Female D ate:08/29/2024 Address:[address] [place] [address], [id number] Check In:08:25 AM PRODUCTION REPRODUCTION MANAGER Subjective: * Chief Complaints: * ???1. Medication management. * HPI: ???History of Presenting Problem:? Follow up depression and anxiety chronic mild over last few months mild report I feel I been doing good, I feel depression good and anxiety little higher r/t work and they are doing a reorganization plan and option to retire yearly plan I can not retire early I can not afford it, I have to work, I am higher level and I get rule 70 year pay and insurance. 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 concentration and focus pretty good, energy none and I know it is Thyroid and I can fall asleep, other that and with thyroid rx increase helps,? motivation and interest same, medications are doing good, no s/e, I feel do not need to change rx or anything, not agitation, and no psychosis, no jose maria no SI/HI, denies SI/HI no plans or intent Dad 11/15/20 3 deaths in 11/19 dxn with Thyroid issues. * ROS:?Patient reports?constipation and change in appetite?but reports no abdominal pain,? form Ozepmpic-?nausea, no vomiting, no diarrhea,, and no GERD;?Ozempic? She reports?arthralgias/joint pain (upper shoulder and CTS rt side and left CTS);?CTS - planned surgery waiting on it ?She reports no restless sleep?but reports? mild depression, feeling safe in a relationship, no alcohol abuse, mild anxiety, no hallucinations, no suicidal thoughts, no mood swings, no memory loss, no agitation,? ?She reports?fatigue;?thyroid rx. recently increased and US thyroid planned r/o Hastimoto? She reports no significant weight gain and no significant weight loss. ?She reports no chest pain, no arm pain on exertion, no shortness of breath when walking, no shortness of breath when lying down, no palpitations, no known heart murmur, and no ankle swelling. She reports no cough and no shortness of breath. ?She reports no incontinence, no difficulty urinating, no hematuria, and no increased frequency. She reports no gait dysfunction. * Medical History:?Problems: A cute COVID-19, Chronic post-traumatic stress disorder, Generalized anxiety disorder, Long-term drug therapy, Normal grief reaction, Primary insomnia, Recurrent major depressive episodes, mild, ,. * Medications:?Taking busPIRon e HCl 10 MG Tablet 1 tablet Oral three times a day , Taking Sertraline HCl 100 MG Tablet 1 tablet Oral Once a day , Taking traZODone HCl 50 MG Tablet 1 tablet at bedtime Oral at bedtime , Taking metFORMIN HCl ER 500 MG Tablet Extended Release 24 Hour Oral , Taking Fluticasone Propionate Diskus 50 MCG/ACT Aerosol Powder Breath Activated Inhalation , Notes to Pharmacist: *Reorder from [employer] Company for eRx and Interaction Alerts*, Taking Phenazopyridine HCl 200 MG Tablet Oral , Taking TRUEPLUS PEN NEEDLE 32 gauge x NEEDLE, DISPOSABLE MISCELLANEOUS , Notes to Pharmacist: *Reorder from [facility] for eRx and Interaction Alerts*, Taking Cetirizine HCl 10 MG Tablet Oral , Taking Ozempic (0.25 or 0.5 MG/DOSE) 2 MG/3ML Solution Pen-injector Subcutaneous , Notes to Pharmacist: *Pick strength-form from [facility] for eRX*, Taking Fluconazole 150 MG Tablet Oral , Taking Synthroid 75 MCG Tablet Oral , Taking Nitrofurantoin Monohyd Macro 100 MG Capsule Oral , Taking Ketoconazole 2% Cream External , Taking amLODIPine Besylate 5 MG Tablet Oral , Taking hydroCHLOROthiazide 25 MG Tablet Oral , Taking metroNIDAZOLE 0.75 % Gel External , Discontinued Xanax 0.5 MG Tablet Oral , Discontinued Trulicity 1.5 mg/0.5 mL Solution Pen-injector Subcutaneous , Discontinued VICTOZA 2-MIGUEL 0.6 mg/0.1 mL (18 mg/3 mL) Solution Pen-injector Subcutaneous , Notes to Pharmacist: *Reorder from [facility] for eRx and Interaction Alerts*, Discontinued Venlafaxine HCl ER 37.5 MG Capsule Extended Release 24 Hour Oral , Medication List reviewed and reconciled with the patient * Allergies:?Naproxen: Allergy - Onset Date 02/25/2024. Objective: * Vitals:? * Examination: ???Psychiatry: ?Appearance:?well-groomed, well-nourished, appears stated age.?Abnormal body movements:?none.?Affect / mood:?appropriate, full range.?Aggression:?low.?Anger control:?good.?Attention:?good.?Attitude:?cooperative.?Homicidal ideation:?none.?Suicidal ideation:?none.?Memory status:?no impairment noted.?Degree of awareness of surroundings:?within normal limits.?Delusions:?no.?Hallucinations:?no.?Impulse control:?good.?Insight:?good.?Intellectual functioning:?average.?Comprehension - Intellectual function:?average.?Judgement:?good.?Orientation:?awake, alert and oriented x 3.?Perceptual disorders:?no perceptual disorder noted.?Psychomotor activity:?within normal range.?Sexual impulse control:?good.?Speech / language:?appropriate pitch/modulation, clear and coherent, normal rate, volume, and articulation (RVR), proper grammar used.?Thought content:?appropriate.?Thought process:?intact.? Assessment: * Assessment: 1.?Major depressive disorder , recurrent, mild - F33.0 (Primary)???2.?Generalized anxiety disorder - F41.1???3.?Primary insomnia - F51.01???4.?Post-traumatic stress disorder, chronic - F43.12??? 1. Recurrent major depressiv e episodes, mild - Sertraline 100 mg daily monitor B/P Medication Management and Follow-Up- Plan:- Schedule follow-up appointments every 2-3 months to monitor the patient's response to the medication regimen.- Reinforce the importance of avoiding recreational drug use due to potential neurotoxicity and interactions with prescribed medications. 2. Generalized anxiety disorder - Zoloft 100 mg daily Buspar 10 mg three times a day Xanax 0.5 mg as needed for flights only # 4 obtain labs PCP educated on all medications, benefits, side effects and risk, and educated on depression, anxiety, and ADHD, mood d/o and educated on compliance of medications, metabolic and movement d/o education appointment is, continue therapy discussion with patient about course of treatment and patient instructions. education on serotonin syndrome SSRI/SNRI side effects discussed including but not limited to, gastric upset, nausea, vomiting, diarrhea and/or constipation, weight changes, sexual side effects including loss of libido, increased suicidal thoughts/behaviors in children and young adults, and serotonin syndrome. 3. Primary insomnia - Melatonin 5-10 mg OTC at bedtime Trazodone 50 mg at bedtime 4. Long-term drug therapy Plan: * Treatment: 2.?Generalized anxiety disor christin? Refill busPIRone HCl Tablet, 10 MG, 1 tablet, Oral, three times a day, 90 days, 270, Refills 0.?? Notes: Learning About Generalized Anxiety Disorder material was published, Generalized Anxiety Disorder: Care Instructions material was published, Learning About Anxiety Disorders material was published?? 3.?Primary insomnia? Refill traZODone HCl Tablet, 50 MG, 1 tablet at bedtime, Oral, at bedtime, 90 days, 90 Tablet, Refills 0.?? Notes: Insomnia: Care Instructions material was published, Learning About Sleeping Well material was published?? 4.?Post-traumatic stress dis order, chronic? Notes: Post-Traumatic Stress Disorder (PTSD): Care Instructions material was published?? * Procedure Codes:?G2211 VISIT COMPLEXITY INHERENT TO ONGOING CARE RELATED TO A PATIENT'S SINGLE, SERIOUS CONDITION OR A COMPLEX CONDITION * Follow Up:?3 Months (Reason: f/u rx) * Billing Information: * Visit Code:? 89582 OFFICE OUTPATIENT VISIT 25 MINUTES DETAILED HISTORY AND EXAM/MODERATE MEDICAL DECISION MAKING. * Procedure Codes:? G2211 VISIT COMPLEXITY INHERENT TO ONGOING CARE RELATED TO A PATIENT'S SINGLE, SERIOUS CONDITION OR A COMPLEX CONDITION. * Sign off status: Completed true * Provider:?DEANGELO WAKEFIELD Date:? Generated for Andrae gonzalez/Tisha/eTransmitting on:?11/25/2024 09:55 AM PRODUCTION REPRODUCTION MANAGER History and Physical Notes * HPI (History of Present Illness) Category Sub-Category Detail Notes Category Not es History of Presenting Problem Follow up depression and anxiety chronic mild over last few months mild report I feel I been doing good, I feel depression good and anxiety little higher r/t work and they are doing a reorganization plan and option to retire yearly plan I can not retire early I can not afford it, I have to work, I am higher level and I get rule 70 year pay and insurance. 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, and helps medications are good and last week increase thyroid rx and US next week also r/t thyroid numbers high and Hastimoto and appetite good adn need to stay away from cookies and weight maintain, on Ozempic lowest dose and I do not want to increase dose makes me N/V, sleep pretty good, I average 5-6 hours a night, I take Trazodone nightly, OCD is good I feel good with depression and down, no hopeless or helpless and I am normal daily anxious, normal restless and fidgety, concentration and focus pretty good, energy none and I know it is Thyroid and I can fall asleep, other that and with thyroid rx increase helps, motivation and interest same, medications are doing good, no s/e, I feel do not need to change rx or anything, not agitation, and no psychosis, no jose maria no SI/HI, denies SI/HI no plans or intent Dad 11/15/20 3 deaths in 11/19 dxn with Thyroid issues Examination Category Sub-Category Detail Notes Category Not es Psychiatry Appearance: well-groomed, we ll-nourished, appears stated age Attitude: cooperative Psychomotor activity: within normal rang e Abnormal body movements: none Attention: good Degree of awareness of surroundings: wit hin normal limits Orientation: awake, alert and johann ented x 3 Affect / mood: appropriate, full ra nge Speech / language: appropriate pitch/mo dulation, clear and coherent, normal rate, volume, and articulation (RVR), proper grammar used Insight: good Judgement: good Thought process: intact Thought content: appropriate Perceptual disorders: no perceptual diso rder noted Aggression: low Anger control: good Suicidal ideation: none Homicidal ideation: none Intellectual functioning: average Impulse control: good Sexual impulse control: good Memory status: no impairment noted Delusions: no Hallucinations: no Comprehension - Intellectual function: a verage
== END 2024-11-25 09:22 | disposition home or self-care (01) ==
LOC: ANHCARD 09:26
PROVIDERS: PCP Physician Assistant; Visit Provider Physician Assistant
DX: Z01.818 Encounter for other preprocedural examination (principal); R94.31 Abnormal electrocardiogram [ECG] [EKG]
CPT/HCPCS: 78452; 93017; 93306; A9502; J2785